=== PATIENT | male | born 1925 | race Caucasian/White ===

== ENCOUNTER 2017-06-27 13:40 | Observation (INO) | payer OTHER ==
--- NOTE | 2017-06-27 14:22 | RAD REPORT ---
EXAM DESCRIPTION: CT - CTHCSPWOC - 06/27/2017 2:05 pm CLINICAL HISTORY: Trauma, fall, head and neck injury. COMPARISON: None. TECHNIQUE: Axial 5 mm thick images of the head were obtained. Axial 2 mm thick images of the cervical spine were obtained with sagittal and coronal reconstruction images generated and reviewed. All CT scans are performed using dose optimization technique as appropriate and may include automated exposure control or mA/KV adjustment according to patient size. FINDINGS: CT HEAD WITHOUT CONTRAST: No acute hemorrhage, hydrocephalus or extra-axial collection is identified.Moderate generalized brain atrophy is present with moderate periventricular and deep white matter chronic microvascular ischemi c changes.No areas of brain edema or midline shift. Right vertebral artery is atherosclerotic. The paranasal sinuses and mastoids are clear.The calvarium is intact. Posterior scalp hematoma is not ed. CT CERVICAL SPINE WITHOUT CONTRAST: No fracture or subluxation.Mild lower cervical degenerative change.No prevertebral soft tissues swell ing is identified. IMPRESSION: No acute intracranial or cervical spine findings.
[2017-06-27 14:46] LABS: Absolute Lymphocytes (CBC) 1.6 K/uL (0.7-4.9); Absolute Monocytes 0.5 K/uL (0.1-1.3); Absolute Neutrophil 5.8 K/uL (1.8-8.0); Basophils % 0.5 % (0-1.3); Eosinophils % 2.8 % (0-4.4); Hematocrit 43.4 % (39.6-49.0); Lymphocytes % 19.2 % (15.3-44.8); MCH 31.2 pg (27.0-35.0); MCV 92.8 fL (80-100); MPV 8.6 fL (7.6-11.3); Monocytes % 6.2 % (3.3-12.3); RBC Red Blood Cell Count 4.68 M/uL (4.33-5.43)
[2017-06-27 14:53] LABS: Protime INR 1.11
[2017-06-27 14:56] LABS: Potassium 4.3 mEq/L (3.6-5.0)
[2017-06-27] MEDS ORDERED: TETANUS & DIPHTHERIA TOX,ADULT 0.5 ML VIAL ONE (14:57)
[2017-06-27 15:03] LABS: Albumin 3.7 g/dL (3.2-5.5); Bilirubin Direct 0.1 mg/dL (0-0.2); Bilirubin Total 0.7 mg/dL (0.3-1.2); Magnesium 1.8 mg/dL (1.8-2.5); Protein, Total 6.5 g/dL (6.0-8.3)
[2017-06-27 15:06] LABS: CKMB Creatine Kinase MB 2.1 ng/ml (0.3-4.0)
[2017-06-27] MEDS ORDERED: ASPIRIN 81 MG CHEWABLE TABLET ONE (15:14)
[2017-06-27] MEDS ORDERED: ONDANSETRON 4 MG/2 ML VIAL IV PRN (15:49)
[2017-06-27] MEDS ORDERED: NA CHLORIDE 0.9% 1,000 ML IV SCH (16:43)
--- NOTE | 2017-06-27 16:48 | ER ---
Nurse's Notes [facility] Name: Akash Byers Jr Age: 89 yrs Sex: Male : 1925 Arrival Date: 06/27/2017 Time: 13:42 Bed 27 Private MD: Diagnosis: Weakness-General;Other slipping, tripping and stumbling and falls;Contusion of unspecified part of head;Elevated Troponin Presentation: 06/27 13:42 Presenting complaint: EMS states: coming from [facility], with a witnessed fall from a hj standing position, with lac on the posterior part of the head, denies LOC and denies blood thinners; hit the posterior head from a table, BP- 180/70; been complaining of back pain that causes him to be unstable on his gait; denies pain on spine, back and neck;. Transition of care: patient was not received from another setting of care. Onset of symptoms was June 27, 2017. Initial Sepsis Screen: Does the patient meet any 2 criteria? No. Patient's initial sepsis screen is negative. Does the patient have a suspected source of infection? No. Patient's initial sepsis screen is negative. Care prior to arrival: None. 13:42 Method Of Arrival: EMS: [facility] 13:42 Acuity: VIN 4 13:51 Mechanism of Injury: Fall from standing position. Trauma event details: Injury occurred hj in the [facility], Injury occurred: in an institution. Injury occurred: June 27, 2017. Triage Assessment: 13:51 General: Appears in no apparent distress. uncomfortable, Behavior is calm, cooperative, hj appropriate for age. Pain: Complains of pain in scalp. Trauma Activation: Not Applicable Physician: ED Physician; Name: ; Notified At: ; Arrived At: Physician: General Surgeon; Name: ; Notified At: ; Arrived At: Physician: Radiology; Name: ; Notified At: ; Arrived At: Physician: Respiratory; Name: ; Notified At: ; Arrived At: Physician: Lab; Name: ; Notified At: ; Arrived At: Historical: - Allergies: 13:48 PENICILLINS; hj - Home Meds: 13:52 citalopram 20 mg tab 1 tab once daily [Active]; clopidogrel 75 mg oral tab 1 tab once hj daily [Active]; donepezil 10 mg oral tab 1 tab once daily [Active]; irbesartan-hydrochlorothiazide 300-12.5 mg oral tab 1 tab once daily [Active]; omeprazole 20 mg Oral cpDR 1 cap once daily [Active]; tamsulosin 0.4 mg oral cp24 1 cap once daily [Active]; Vesicare 5 mg oral tab 1 tab once daily [Active]; Acephen 650 mg Rectal supp 1 suppository every 4 hours [Active]; Cipro 500 mg Oral tab 1 tab every 12 hours [Active]; diazepam 10 mg Oral tab 1 tab 3 times per day [Active]; lactulose 10 gram/15 mL (15 mL) Oral soln 15 mL once daily [Active]; lorazepam 0.5 mg Oral tab 1 tab 3 times per day [Active]; morphine 15 mg Oral tab 1 tab every 4 hours [Active]; Zofran (as hydrochloride) 4 mg Oral tab 1 tabs 3 times per day [Active]; tramadol 50 mg Oral tab 1 tab every 4 hours [Active]; triamcinolone acetonide 0.025 % Topical crea 2 times per day [Active]; - PMHx: 13:52 Alzheimers; Hypertension; hj - PSHx: 13:48 Cholecystectomy; hj - Immunization history:: Adult Immunizations up to date. - Social history:: Smoking status: Patient/guardian denies using tobacco, Patient/guardian denies using alcohol. - Immunization history: Last tetanus immunization: unknown. Screenin:49 Abuse screen: Denies threats or abuse. Denies injuries from another. Nutritional hj screening: No deficits noted. Tuberculosis screening: No symptoms or risk factors identified. Fall Risk Fall in past 12 months (25 points). Primary Survey: 13:40 A: Airway: patent, No supplemental oxygen in use on arrival. Oral cavity: clear, gag hj reflex present, Trachea midline. Breathing/Chest: Respiratory pattern: regular, Respiratory effort: spontaneous, unlabored, Breath sounds: clear, Chest inspection: symmetrical rise and fall of the chest. Circulation: Cardiac rhythm: sinus rhythm Heart tones present. Pulses: palpable right radial artery and left radial artery. Skin color: pink, Skin temperature: warm, dry. Disability Alert. 13:50 Reassessment Airway Airway Patent Oxygen No O2 Oral cavity Clear +Gag reflex Trachea hj Midline Breathing/Chest Respiratory pattern Regular Respiratory effort Spontaneous Unlabored Breath sounds Clear Chest inspection Symmetrical Circulation Heart rhythm Sinus rhythm Heart tones Present Pulses Palpable Color [place] Temperature Warm Dry Disability Alert. 14:50 Reassessment Airway Airway Patent Oxygen No O2 Oral cavity Clear +Gag reflex Trachea hj Midline Breathing/Chest Respiratory pattern Regular Respiratory effort Spontaneous Unlabored Breath sounds Clear Chest inspection Symmetrical Circulation Heart rhythm Sinus rhythm Heart tones Present Pulses Palpable Color [place] Temperature Warm Dry Disability Alert. 15:50 Reassessment Airway Airway Patent Oxygen No O2 Oral cavity Clear +Gag reflex Trachea hj Midline Breathing/Chest Respiratory pattern Regular Respiratory effort Spontaneous Unlabored Breath sounds Clear Chest inspection Symmetrical Circulation Heart rhythm Sinus rhythm Heart tones Present Pulses Palpable Color [place] Temperature Warm Dry. 16:51 Reassessment Airway Airway Patent Oxygen No O2 Oral cavity Clear +Gag reflex Trachea hj Midline Breathing/Chest Respiratory pattern Regular Respiratory effort Spontaneous Unlabored Breath sounds Clear Chest inspection Symmetrical Circulation Heart rhythm Sinus rhythm Heart tones Present Pulses Palpable Color [place] Temperature Warm Dry Disability Alert. Secondary Survey: 13:48 HEENT: Head Other bruising;. Gastrointestinal: No deficits noted. : No signs and/or hj symptoms were reported regarding the genitourinary system. Musculoskeletal: No signs and/or symptoms reported regarding the musculoskeletal system. 13:48 Injury Description: Bruise sustained to scalp. hj Assessment: 13:52 General: Appears in no apparent distress. uncomfortable, Behavior is calm, cooperative, hj appropriate for age. Pain: Complains of pain in scalp. Neuro: Level of Consciousness is awake, alert, obeys commands, Oriented to person, place, time, situation, Appropriate for age. Cardiovascular: Capillary refill < 3 seconds Patient's skin is warm and dry. Respiratory: Airway is patent Respiratory effort is even, unlabored, Respiratory pattern is regular, symmetrical. GI: No signs and/or symptoms were reported involving the gastrointestinal system. : No signs and/or symptoms were reported regarding the genitourinary system. EENT: No signs and/or symptoms were reported regarding the EENT system. Derm: Wound noted scalp Reports. Musculoskeletal: No signs and/or symptoms reported regarding the musculoskeletal system. Injury Description: Laceration. 14:45 Reassessment: Patient and/or family updated on plan of care and expected duration. Pain hj level reassessed. Patient is alert, oriented x 3, equal unlabored respirations, skin warm/dry/pink. possible admit;. 15:45 Reassessment: Patient and/or family updated on plan of care and expected duration. Pain hj level reassessed. Patient is alert, oriented x 3, equal unlabored respirations, skin warm/dry/pink. 16:48 Reassessment: Patient and/or family updated on plan of care and expected duration. Pain hj level reassessed. Patient is alert, oriented x 3, equal unlabored respirations, skin warm/dry/pink. awaiting room placement;. Vital Signs: 13:48 BP 164 / 69; Pulse 66; Resp 18; Temp 98.1(TE); Pulse Ox 95% on R/A; Weight 90.72 kg; hj Height 6 ft. 0 in. (182.88 cm); 15:48 BP 173 / 82; Pulse 73; Resp 18; Pulse Ox 100% on R/A; hj 16:49 BP 188 / 88; Pulse 61; Resp 18; Pulse Ox 100% on R/A; hj 13:48 Body Mass Index 27.13 (90.72 kg, 182.88 cm) hj Shauna Coma Score: 13:48 Eye Response: spontaneous(4). Verbal Response: oriented(5). Motor Response: obeys hj commands(6). Total: 15. Trauma Score (Adult): 13:48 Eye Response: spontaneous(1); Verbal Response: oriented(1); Motor Response: obeys hj commands(2); Systolic BP: > 89 mm Hg(4); Respiratory Rate: 10 to 29 per min(4); Shauna Score: 15; Trauma Score: 12 ED Course: 13:42 Patient arrived in ED. hj 13:43 [facility]. cp 13:44 Tristin Salinas MD is Attending Physician. cp 13:47 Triage completed. hj 13:51 Arm band placed on right wrist. hj 13:51 Patient maintains SpO2 saturation greater than 95% on room air. hj 13:52 Patient has correct armband on for positive identification. Bed in low position. Call light in reach. Side rails up X 1. Adult w/ patient. 13:52 Thermoregulation: warm blanket given to patient. hj 13:53 Keron Jean, ERMA is Primary Nurse. hj 13:58 Initial lab(s) drawn, by ne, sent to lab. Urine collected: clean catch specimen. hj Inserted saline lock: 22 gauge in right antecubital area, using aseptic technique. Blood collected. 14:05 CT completed. Patient tolerated procedure well. Patient moved back from CT. bq 14:05 CT Head C Spine In Process Unspecified. EDMS 16:46 Marianela Hobson MD is Hospitalizing Provider. cp 17:48 No provider procedures requiring assistance completed. Patient admitted, IV remains in hj place. intact. 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 Exp: hj 10/02/2019. Lot #: [id number]. } Route: IM; Site: right deltoid; 15:02 Follow up: Response: No adverse reaction hj 15:13 Drug: Aspirin Chewable Tablet 324 mg Route: PO; hj 15:21 Follow up: Response: No adverse reaction hj Intake: 17:49 PO: 200ml; Total: 200ml. hj Output: 17:49 Urine: 350ml (Voided); Total: 350ml. hj Outcome: 16:45 awaiting room assignment;Patient's length of stay extended due to hj 16:47 Decision to Hospitalize by Provider. cp 17:48 Admitted to Tele accompanied by tech, family with patient, via stretcher, room 405, hj with chart, Report called to ERMA Schumacher 17:48 Condition: stable 17:48 Instructed on the need for admit, Demonstrated understanding of instructions. 17:49 Patient left the ED. Signatures: Dispatcher [employer] EDMS Anna Alexis Henry, RN RN Tristin Miranda PA PA cp Corrections: (The following items were deleted from the chart) 15:47 13:48 BP 164 / 69; Pulse 18bpm; Resp 66bpm; Pulse Ox 95% RA; Temp 98.1F Temporal; 90.72 hj kg; Height 6 ft. 0 in.; BMI: 27.1; hj
--- NOTE | 2017-06-27 16:48 | EDPHYS ---
Physician Documentation [facility] Name: Akash Byers Jr Age: 89 yrs Sex: Male : 1925 Arrival Date: 06/27/2017 Time: 13:42 Bed 27 Private MD: ED Physician Tristin Salinas HPI: 06/27 13:55 This 89 yrs old Male presents to ER via EMS with complaints of Fall Injury. cp 13:55 Details of fall: The patient fell from an upright position, while standing. Onset: The cp symptoms/episode began/occurred just prior to arrival. Associated injuries: The patient sustained injury to the head, contusion, hematoma. Daughter reports increasing weakness causing patient to fall today when getting up from table. Patient hit back of head w/o LOC. Historical: - Allergies: 13:48 PENICILLINS; hj - Home Meds: 13:52 citalopram 20 mg tab 1 tab once daily [Active]; clopidogrel 75 mg oral tab 1 tab once hj daily [Active]; donepezil 10 mg oral tab 1 tab once daily [Active]; irbesartan-hydrochlorothiazide 300-12.5 mg oral tab 1 tab once daily [Active]; omeprazole 20 mg Oral cpDR 1 cap once daily [Active]; tamsulosin 0.4 mg oral cp24 1 cap once daily [Active]; Vesicare 5 mg oral tab 1 tab once daily [Active]; Acephen 650 mg Rectal supp 1 suppository every 4 hours [Active]; Cipro 500 mg Oral tab 1 tab every 12 hours [Active]; diazepam 10 mg Oral tab 1 tab 3 times per day [Active]; lactulose 10 gram/15 mL (15 mL) Oral soln 15 mL once daily [Active]; lorazepam 0.5 mg Oral tab 1 tab 3 times per day [Active]; morphine 15 mg Oral tab 1 tab every 4 hours [Active]; Zofran (as hydrochloride) 4 mg Oral tab 1 tabs 3 times per day [Active]; tramadol 50 mg Oral tab 1 tab every 4 hours [Active]; triamcinolone acetonide 0.025 % Topical crea 2 times per day [Active]; - PMHx: 13:52 Alzheimers; Hypertension; hj - PSHx: 13:48 Cholecystectomy; hj - Immunization history:: Adult Immunizations up to date. - Social history:: Smoking status: Patient/guardian denies using tobacco, Patient/guardian denies using alcohol. - Immunization history: Last tetanus immunization: unknown. ROS: 14:00 Constitutional: Negative for body aches, chills, fever, poor PO intake. cp 14:00 Eyes: Negative for injury, pain, redness, and discharge. cp 14:00 Neck: Negative for pain with movement, pain at rest, stiffness. 14:00 Cardiovascular: Negative for chest pain, edema, palpitations. 14:00 Respiratory: Negative for cough, shortness of breath, wheezing. 14:00 Back: Negative for pain at rest, pain with movement, radiated pain. 14:00 MS/extremity: Negative for injury or acute deformity, decreased range of motion, deformity, paresthesias. 14:00 Skin: Negative for cellulitis, rash. 14:00 Neuro: Positive for general weakness, Negative for altered mental status, loss of consciousness, seizure activity, syncope, near syncope. 14:00 All other systems are negative. Exam: 14:08 Constitutional: The patient appears in no acute distress, alert, awake, cp non-diaphoretic, non-toxic, well developed, well nourished. 14:08 Head/face: Noted is contusion, that is superficial, of the right side of the back of cp head, hematoma, that is mild, of the right side of the back of head. 14:08 Eyes: Periorbital structures: appear normal, Pupils: equal, round, and reactive to light and accomodation, Extraocular movements: intact throughout, Conjunctiva: normal, no exudate, no injection, Sclera: no appreciated abnormality, Lids and lashes: appear normal, bilaterally. 14:08 ENT: External ear(s): are unremarkable, Ear canal(s): are normal, clear, TM's: bulging, is not appreciated, bilaterally, dullness, bilaterally, erythema, is not appreciated, bilaterally, Nose: is normal, Mouth: Lips: moist, Oral mucosa: pink and intact, moist, Posterior pharynx: is normal, airway is patent, no erythema, no exudate. 14:08 Neck: C-spine: vertebral tenderness, is not appreciated, crepitus, is not appreciated, ROM/movement: is normal, is supple, without pain, no range of motions limitations, no nuchal rigidity. 14:08 Chest/axilla: Inspection: normal, Palpation: is normal, no crepitus, no tenderness. 14:08 Cardiovascular: Rate: normal, Rhythm: irregular, Pulses: Pulses are 2+ in right radial artery and left radial artery. Edema: is not appreciated, JVD: is not appreciated. 14:08 Respiratory: the patient does not display signs of respiratory distress, Respirations: normal, no use of accessory muscles, no retractions, no splinting, no tachypnea, labored breathing, is not present, Breath sounds: are clear throughout, no decreased breath sounds, no stridor, no wheezing. 14:08 Abdomen/GI: Inspection: abdomen appears normal, Bowel sounds: active, all quadrants, Palpation: abdomen is soft and non-tender, in all quadrants, rebound tenderness, is not appreciated, voluntary guarding, is not appreciated, involuntary guarding, is not appreciated. 14:08 Back: ROM is normal. 14:08 Musculoskeletal/extremity: Exam is negative for decreased range of motion, deformity, injury. 14:08 Skin: cellulitis, is not appreciated, no rash present. 14:08 Neuro: Orientation: to person, place, situation, Mentation: lucid, able to follow commands, Cerebellar function: is grossly normal, Motor: moves all fours, strength is normal, Sensation: no obvious gross deficits. Vital Signs: 13:48 BP 164 / 69; Pulse 66; Resp 18; Temp 98.1(TE); Pulse Ox 95% on R/A; Weight 90.72 kg; Height 6 ft. 0 in. (182.88 cm); 15:48 BP 173 / 82; Pulse 73; Resp 18; Pulse Ox 100% on R/A; 16:49 BP 188 / 88; Pulse 61; Resp 18; Pulse Ox 100% on R/A; 13:48 Body Mass Index 27.13 (90.72 kg, 182.88 cm) Shauna Coma Score: 13:48 Eye Response: spontaneous(4). Verbal Response: oriented(5). Motor Response: obeys commands(6). Total: 15. Trauma Score (Adult): 13:48 Eye Response: spontaneous(1); Verbal Response: oriented(1); Motor Response: obeys commands(2); Systolic BP: > 89 mm Hg(4); Respiratory Rate: 10 to 29 per min(4); [place] Score: 15; Trauma Score: 12 MDM: 13:47 Patient medically screened. 16:15 Data reviewed: vital signs, nurses notes, lab test result(s), EKG, radiologic studies, cp CT scan. 16:15 Test interpretation: by ED physician or midlevel provider: ECG. 16:35 Physician consultation: Marianela Hobson MD was contacted at 16:35, regarding admission, cp to the telemetry unit. patient's condition, and will see patient in ED, shortly. 06/27 14:16 Order name: Basic Metabolic Panel; Complete Time: 15:11 06/27 15:11 Interpretation: Normal except: BUN 22; CRE 1.26; GFR 54. 06/27 14:16 Order name: CBC with Diff; Complete Time: 15:11 06/27 15:11 Interpretation: Normal except: PLT 134. 06/27 14:16 Order name: Ckmb; Complete Time: 15:11 06/27 14:16 Order name: CPK; Complete Time: 15:11 06/27 14:16 Order name: LFT's; Complete Time: 15:11 06/27 14:16 Order name: Magnesium; Complete Time: 15:11 06/27 14:16 Order name: PT-INR; Complete Time: 15:11 06/27 15:27 Interpretation: PT 13.1; Reviewed. 06/27 14:16 Order name: Ptt, Activated; Complete Time: 15:11 06/27 14:16 Order name: Troponin (emerg Dept Use Only); Complete Time: 15:11 06/27 15:12 Interpretation: Abnormal: TROPED 0.04. 06/27 15:47 Order name: Urine Dipstick--Ancillary (enter results) eb 06/27 16:44 Order name: CBC with Automated Diff EDMS 06/27 16:44 Order name: CBC with Automated Diff EDMS 06/27 16:44 Order name: CBC with Automated Diff EDMS 06/27 16:44 Order name: CBC with Automated Diff EDMS 06/27 13:44 Order name: CT Head C Spine; Complete Time: 14:23 06/27 14:23 Interpretation: Reviewed report. 06/27 14:16 Order name: EKG; Complete Time: 14:16 06/27 14:16 Order name: Cardiac monitoring; Complete Time: 14:17 06/27 14:16 Order name: EKG - Nurse/Tech; Complete Time: 14:38 06/27 14:16 Order name: IV Saline Lock; Complete Time: 14:38 06/27 14:16 Order name: Labs collected and sent; Complete Time: 14:38 06/27 14:16 Order name: O2 Per Protocol; Complete Time: 14:18 06/27 15:51 Order name: Heart Healthy [facility] 06/27 16:44 Order name: Physical Therapy Consult [facility] 06/27 16:44 Order name: Comprehensive Metabolic Panel [facility] 06/27 16:44 Order name: Comprehensive Metabolic Panel [facility] 06/27 16:44 Order name: Comprehensive Metabolic Panel [facility] 06/27 16:44 Order name: Comprehensive Metabolic Panel [facility] 06/27 16:44 Order name: Troponin I [facility] 06/27 14:16 Order name: O2 Sat Monitoring; Complete Time: 14:18 06/27 14:16 Order name: Urine Dipstick-Ancillary (obtain specimen); Complete Time: 15:49 06/27 14:50 Order name: Wound Care; Complete Time: 15:21 cp Administered Medications: 14:50 Drug: Tetanus-Diphtheria Toxoid Adult 0.5 ml {[employer]: [employer]. Exp: 10/02/2019. Lot #: [id number]. } Route: IM; Site: right deltoid; 15:02 Follow up: Response: No adverse reaction 15:13 Drug: Aspirin Chewable Tablet 324 mg Route: PO; 15:21 Follow up: Response: No adverse reaction Disposition: 18:30 Chart complete. cp Disposition: 06/27/17 16:47 Hospitalization ordered by Marianela Hobson for Observation. Preliminary diagnosis are Weakness - General, Other slipping, tripping and stumbling and falls, Contusion of unspecified part of head, Elevated Troponin. - Bed requested for Telemetry/MedSurg (observation). - Status is Observation. hj - Condition is Stable. - Problem is new. - Symptoms are unchanged. UTI on Admission? No Addendum: 06/29/2017 09:03 Co-signature as Attending Physician, Tristin Salinas MD I agree with the assessment and c husain plan of care. Signatures: Dispatcher [employer] Tristin Gray MD MD cha Joaquin, Henry, RN RN Tristin Bhat PA PA cp Botello, Elizabeth eb
--- NOTE | 2017-06-27 16:56 | P.HP ---
Certification for Inpatient Patient admitted to: Observation With expected LOS: <2 Midnights Patient will require the following post-hospital care: None Practitioner: I am a practitioner with admitting privileges, knowledge of patient current condition, hospital course, and medical plan of care. Services: Services provided to patient in accordance with Admission requirements found in Title 42 Section 412.3 of the Code of Federal Regulations Patient History Date of Service: 06/27/17 Primary Care Provider: Dr Gregg Reason for admission: Fall History of Present Illness: This is a 89-year-old male with significant past medical history of hypertension , CAD, Alzheimer's disease who presented to the ED after having a fall at lunch this morning. Patient's family at bedside states that patient usually lives [facility] and sees as his primary care provider. Patient was in his general state of health until 2 days ago where he started having some generalized weakness and which got progressively worse. Today at lunch time patient who was found to have unsteady gait and had a fall a ventrally. Does the family members brought the patient over to the ER to get a further checked out. Patient denies having any fever chills nausea vomiting chest pain or any shortness of breath at this time and states that he does not have any other symptoms other than just generalized weakness. In the ER patient had extensive workup done which was consistent with head CT which was within normal limits however there was superficial hematoma noted in the back of his head. Patient was also found to have acute kidney injury just a slight bump from his baseline. Patient was then referred to medicine team for an admission for observation for his fall. Allergies Penicillins Allergy (Mild, Verified 06/27/17 16:42) Rash Home Medications: Diphenhydramine HCl [Benadryl] 25 mg PO BEDTIME 04/15/11 Gluc Cote/Chondroitin Sulfate A [Glucosamine-Chondroitin Cap] 2 each PO DAILY 12/02 Ibuprofen [Advil] 400 mg PO BEDTIME PRN 04/15/11 Olmesartan/Hydrochlorothiazide [Benicar Hct 40-25 mg Tablet] 1 each PO DAILY 12/02 Tamsulosin HCl [Flomax] 0.4 mg PO DAILY 04/15/11 Clopidogrel Bisulfate [Plavix*] 75 mg PO DAILY #0 tablet 04/17/11 Iron Bis-Gly/FA/C/B12/Ca/Succ [Iron 21/7 Tablet] 1 tab PO DAILY 10/14/14 Omeprazole [Prilosec] 1 cap PO DAILY 10/14/14 Acetaminophen [Acephen] 650 mg RC Q4H 06/27/17 Citalopram [Celexa] 20 mg PO DAILY 06/27/17 Diazepam [Valium] 10 mg PO PRN PRN 06/27/17 Donepezil [Aricept] 10 mg PO BEDTIME 06/27/17 Lactulose [Enulose] 10 gm PO PRN PRN 06/27/17 Lorazepam [Ativan] 0.5 mg PO BID PRN 06/27/17 Morphine Sulfate [Morphine Sulfate ER] 15 mg PO PRN PRN 06/27/17 Ondansetron [Zofran] 4 mg PO Q6H PRN 06/27/17 Solifenacin [Vesicare] 5 mg PO DAILY 06/27/17 - Past Medical/Surgical History Diabetic: No -: AAA -: BPH -: cholecystectomy -: lobectomy - Family History Father -: Heart disease, Hypertension - Social History Alcohol use: No CD- Drugs: No Caffeine use: Yes Review of Systems General: As per HPI Physical Examination - Physical Exam General: Alert, In no apparent distress, Oriented x3 HEENT: Atraumatic Neck: Supple Respiratory: Clear to auscultation bilaterally, Normal air movement Cardiovascular: Regular rate/rhythm, Normal S1 S2 Gastrointestinal: Normal bowel sounds, Soft and benign, Non-distended, No tenderness Musculoskeletal: No tenderness Integumentary: No rashes Neurological: Normal speech, Normal tone, Abnormal strength Lymphatics: No axilla or inguinal lymphadenopathy - Studies Laboratory Data (last 24 hrs) 06/27/17 14:30: PT 13.1 H, INR 1.11, APTT 30.3 06/27/17 14:30: WBC 8.1, Hgb 14.6, Hct 43.4, Plt Count 134 L 06/27/17 14:30: Sodium 136, Potassium 4.3, BUN 22 H, Creatinine 1.26 H, Glucose 117, Magnesium 1.8, Total Bilirubin 0.7, AST 29, ALT 16, Alkaline Phosphatase 57 Assessment and Plan - Problems (Diagnosis) (1) Fall Current Visit: Yes Status: Acute Plan: Mechanical Fall -Fall precautions -PT.OT consulted -Head Ct Negative -Superfical Hematoma. Cleaned and dried in the ED. Qualifiers: Encounter type: initial encounter Qualified Code(s): W19.XXXA - Unspecified fall, initial encounter (2) Weakness Onset Date: 10/16/14 Current Visit: No Status: Acute Plan: Generalized weakness. Most Likely from Dehydration and Afib -IV fluids -PT/OT on board -UA and blood culture pending (3) A-fib Current Visit: Yes Status: Acute Plan: Unspecified Afib with HR of 60-65. -Currently not on BB -On ASA and plavix for CAD -Will get ECHO and cardiology consult -High Risk for fall to start any other anticoagulation at this time Qualifiers: Atrial fibrillation type: unspecified Qualified Code(s): I48.91 - Unspecified atrial fibrillation (4) Alzheimer disease Current Visit: Yes Status: Chronic Plan: Will restart home medication. Qualifiers: Alzheimer's disease onset: early-onset Dementia behavioral disturbance: without behavioral disturbance Qualified Code(s): G30.0 - Alzheimer's disease with early onset; F02.80 - Dementia in other diseases classified elsewhere without behavioral disturbance; F02.80 - Dementia in other diseases classified elsewhere without behavioral disturbance; F02.80 - Dementia in other diseases classified elsewhere without behavioral disturbance (5) HTN (hypertension) Current Visit: Yes Status: Chronic Qualifiers: Hypertension type: essential hypertension Qualified Code(s): I10 - Essential (primary) hypertension (6) CAD (coronary artery disease) Current Visit: Yes Status: Chronic Qualifiers: Coronary Disease-Associated Artery/Lesion type: [place] artery [place] vs. transplanted heart: [place] heart Associated angina: without angina Qualified Code(s): I25.10 - Atherosclerotic heart disease of [place] coronary artery without angina pectoris Discharge Plan: Home Plan to discharge in: 48 Hours - Advance Directives Does patient have a Living Will: Yes Does patient have a Durable POA for Healthcare: Yes - Code Status/Comfort Care Code Status Assessed: Yes Critical Care: No
[2017-06-27 16:58] LABS: Urine Blood 1+ (NEG); Urine Glucose NEGATIVE (NEG); Urine Protein 3+ (NEG)
[2017-06-27] MEDS ORDERED: NA CHLORIDE 0.9% 1,000 ML ONE (17:46)
[2017-06-27 18:59] VITALS: BMI 26.0
[2017-06-27] MEDS: DONEPEZIL HCL 5 MG TAB PO SCH (20:14)
[2017-06-27] MEDS: METOPROLOL TAR 50 MG TAB PO SCH (22:00)
[2017-06-28 05:59] LABS: Absolute Lymphocytes (CBC) 1.8 K/uL (0.7-4.9); Absolute Monocytes 0.6 K/uL (0.1-1.3); Absolute Neutrophil 6.6 K/uL (1.8-8.0); Basophils % 0.4 % (0-1.3); Eosinophils % 5.5 % (0-4.4); Hematocrit 43.3 % (39.6-49.0); MCH 31.2 pg (27.0-35.0); MCV 92.1 fL (80-100); MPV 8.7 fL (7.6-11.3); Monocytes % 6.3 % (3.3-12.3)
[2017-06-28] MEDS: PANTOPRAZOLE 40MG TABLET PO SCH (06:09)
[2017-06-28 06:32] LABS: Albumin 3.4 g/dL (3.2-5.5); Bilirubin Total 0.9 mg/dL (0.3-1.2); Potassium 4.1 mEq/L (3.6-5.0); Protein, Total 5.8 g/dL (6.0-8.3)
[2017-06-28 06:55] LABS: Magnesium 1.7 mg/dL (1.8-2.5); Phosphorus 3.3 mg/dL (2.5-4.3)
[2017-06-28] MEDS ORDERED: MAGNESIUM SULFATE 1 gm IVPB 1 GM/100 ML BAG IV ONE (08:58)
[2017-06-28] MEDS ORDERED: HOME MED 1 EA UNK (Omeprazole [Prilosec] 1 CAP) PO SCH (09:00)
[2017-06-28] MEDS ORDERED: HYDROCHLOROTHIAZIDE PO SCH (09:00)
[2017-06-28] MEDS ORDERED: [UNRECOGNIZED DRUG - OTHER] PO SCH (09:00)
[2017-06-28] MEDS: METOPROLOL TAR 50 MG TAB PO SCH (09:00)
[2017-06-28] MEDS ORDERED: hydroCHLOROthiazide 25 MG TAB PO SCH (09:00)
[2017-06-28] MEDS ORDERED: OLMESARTAN PO SCH (09:00)
[2017-06-28] MEDS: TAMSULOSIN 0.4 MG SR CAP PO SCH (10:02)
[2017-06-28] MEDS: FE SULF/FA/VIT B COMP & C TAB PO SCH (10:02)
[2017-06-28] MEDS: CITALOPRAM 10 MG TABLET PO SCH (10:02)
[2017-06-28] MEDS: VALSARTAN 160 MG TAB PO SCH (10:02)
[2017-06-28] MEDS: SOLIFENACIN SUCCIN 5 MG TAB PO SCH (10:03)
[2017-06-28] MEDS: CLOPIDOGREL 75 MG TABLET PO SCH (10:03)
[2017-06-28] MEDS: GLUCOSAM/CHONDROI 500mg-400mg PO SCH (10:06)
--- NOTE | 2017-06-28 10:35 | P.PN ---
Subjective Date of Service: 06/28/17 Primary Care Provider: Dr Gregg Chief Complaint: Fall Pt seen and examined at bedside. Chart reviewed. Case D/w cardiology. Currently pt has no complains to offer. He was confused in AM where he called his daughter to take his home. However his was not in the room. She is at [facility]. During rounds pt was AAOx 3. He does appear a little agitated from yesterday. Review of Systems General: As per HPI Physical Examination - Vital Signs Temperature: 97.1 F Blood Pressure: 181/72 Pulse: 51 Respirations: 18 Pulse Ox (%): 93 - Physical Exam General: Alert, In no apparent distress, Oriented x3 HEENT: Atraumatic Neck: Supple Respiratory: Normal air movement, Rhonchi/gurgles Cardiovascular: Normal S1 S2, Irregular heart rate/rhythm Gastrointestinal: Normal bowel sounds, Soft and benign, Non-distended, No tenderness Musculoskeletal: No tenderness Integumentary: No rashes Neurological: Normal speech, Normal tone, Normal affect Lymphatics: No axilla or inguinal lymphadenopathy - Studies Laboratory Data (last 24 hrs) 06/27/17 14:30: PT 13.1 H, INR 1.11, APTT 30.3 06/27/17 14:30: WBC 8.1, Hgb 14.6, Hct 43.4, Plt Count 134 L 06/27/17 14:30: Sodium 136, Potassium 4.3, BUN 22 H, Creatinine 1.26 H, Glucose 117, Magnesium 1.8, Total Bilirubin 0.7, AST 29, ALT 16, Alkaline Phosphatase 57 Medications List Reviewed: Yes Assessment & Plan - Problems (Diagnosis) (1) Fall Current Visit: Yes Status: Acute Plan: Mechanical Fall -Fall precautions -PT.OT consulted -Head Ct Negative in ED -Superfical Hematoma. Cleaned and dried in the ED. Qualifiers: Encounter type: initial encounter Qualified Code(s): W19.XXXA - Unspecified fall, initial encounter (2) Weakness Onset Date: 10/16/14 Current Visit: No Status: Acute Plan: Generalized weakness. Most Likely from Dehydration and Afib -IV fluids -PT/OT on board -UA and blood culture pending (3) A-fib Current Visit: Yes Status: Acute Plan: long history of Afib with HR of 60-65. -Currently on Metoprolol. Was on betapace in the past but was not able to tolerate it. -On ASA and plavix for CAD -High Risk for fall to start any other anticoagulation at this time -Case D/W cardiology. Reccs Apprecaited -No echo needed. Recent one done in the office which was WNL -No anticoagulation due to h/o falls. Continue with ASA and plavix -Continue with BB and DC HCTZ. -F/U in the clinic on thursday 8:30 AM Qualifiers: Atrial fibrillation type: unspecified Qualified Code(s): I48.91 - Unspecified atrial fibrillation (4) Alzheimer disease Current Visit: Yes Status: Chronic Plan: Will restart home medication. Qualifiers: Alzheimer's disease onset: early-onset Dementia behavioral disturbance: without behavioral disturbance Qualified Code(s): G30.0 - Alzheimer's disease with early onset; F02.80 - Dementia in other diseases classified elsewhere without behavioral disturbance; F02.80 - Dementia in other diseases classified elsewhere without behavioral disturbance; F02.80 - Dementia in other diseases classified elsewhere without behavioral disturbance (5) HTN (hypertension) Current Visit: Yes Status: Chronic Qualifiers: Hypertension type: essential hypertension Qualified Code(s): I10 - Essential (primary) hypertension (6) CAD (coronary artery disease) Current Visit: Yes Status: Chronic Qualifiers: Coronary Disease-Associated Artery/Lesion type: [place] artery [place] vs. transplanted heart: [place] heart Associated angina: without angina Qualified Code(s): I25.10 - Atherosclerotic heart disease of [place] coronary artery without angina pectoris Discharge Plan: Other Plan to discharge in: 24 Hours - Code Status/Comfort Care Code Status Assessed: Yes Critical Care: No
--- NOTE | 2017-06-28 14:36 | RAD REPORT ---
EXAM DESCRIPTION: CT - Head Brain Wo Cont - 06/28/2017 1:06 pm CLINICAL HISTORY: New or persistent alteration of awareness. Malfunction of the aviation technician system precluded an earlier written report. COMPARISON: CT imaging June 27 TECHNIQUE: Axial 5 mm thick images of the head were obtained without IV contrast. All CT scans are performed using dose optimization technique as appropriate and may include automated exposure control or mA/KV adjustment according to patient size. FINDINGS: No intracranial hemorrhage has developed since the prior imaging. Again noted is the advan marjroie atrophy and chronic ischemic change. Severity of disease could easily mask nonhemorrhagic infarct ion. Brainstem chronic ischemic changes also noted. No cortical edema or sulcal effacement. There is no midline shift or mass effect. No abnormal extra-axial fluid collections. Ventricles are in proport ion to volume loss. Arterial calcifications are present. The intracranial findings are not clearly di fferent from the comparison. Mastoid air cells and visualized portions of the paranasal sinuses are clear. No skull fracture changes. The patient does have prominent soft tissues in the occipital scalp that i s probably a small posttraumatic scalp hematoma. IMPRESSION: Prominent atrophy and chronic ischemic changes are present similar to the prior day stud y. No hemorrhage, edema or other acute intracranial finding has developed. Small posterior occipital scalp hematoma. Underlying bone is intact.
--- NOTE | 2017-06-28 16:10 | EKG ---
Test Date: 2017-06-27 Test Time: 14:45:34 Bridge Manager: WILLAM MEASUREMENT RESULTS: Intervals: Rate: 65 DE: QRSD: 174 QT: 484 QTc: 503 [place]: P: DE: QRS: -61 T: 10 INTERPRETIVE STATEMENTS: Atrial fibrillation Right bundle branch block Left anterior fascicular block Bifascicular block Cannot rule out Septal infarct, age undetermined Abnormal ECG Compared to ECG 10/15/2014 06:00:07 Sinus bradycardia no longer present First degree AV block no longer present Bifascicular block still present Myocardial infarct finding still present Electronically Signed On 06-28-17 16:09:57 CDT by Mustapha Dominguez
[2017-06-28] MEDS: AMLODIPINE 5 MG TAB PO SCH (17:51)
[2017-06-28] MEDS: TRAMADOL HCL 50 MG TAB PO PRN (17:59)
[2017-06-28] MEDS: DONEPEZIL HCL 5 MG TAB PO SCH (21:14)
[2017-06-29 05:01] LABS: Urine Appearance CLEAR; Urine Bilirubin NEGATIVE (NEG); Urine Blood 1+ (NEG); Urine Color YELLOW; Urine Glucose NEGATIVE (NEG); Urine Protein 3+ (NEG); Urine Urobilinogen 0.2 mg/dL (0.2-1.0)
[2017-06-29 05:02] LABS: Urine Microscopic Reflex ORDER UMIC
[2017-06-29 05:51] LABS: Urine Culture Reflex Order NOT NEEDED
[2017-06-29 05:52] LABS: Urine Bacteria <20 /HPF (NONE SEEN)
[2017-06-29] MEDS: PANTOPRAZOLE 40MG TABLET PO SCH (06:13)
[2017-06-29 06:24] LABS: Albumin 3.1 g/dL (3.2-5.5); Bilirubin Total 1.2 mg/dL (0.3-1.2); Potassium 3.5 mEq/L (3.6-5.0); Protein, Total 5.6 g/dL (6.0-8.3)
[2017-06-29 06:53] LABS: Absolute Monocytes 0.8 K/uL (0.1-1.3); Absolute Neutrophil 6.7 K/uL (1.8-8.0); Basophils % 0.2 % (0-1.3); Eosinophils % 1.8 % (0-4.4); Hematocrit 41.7 % (39.6-49.0); Lymphocytes % 20.3 % (15.3-44.8); MCH 31.6 pg (27.0-35.0); MCV 91.4 fL (80-100); Monocytes % 7.9 % (3.3-12.3); RBC Red Blood Cell Count 4.56 M/uL (4.33-5.43)
[2017-06-29 07:29] LABS: Magnesium 1.7 mg/dL (1.8-2.5)
[2017-06-29] MEDS ORDERED: MAGNESIUM SULFATE 1 gm IVPB 1 GM/100 ML BAG IV ONE (09:00)
[2017-06-29] MEDS ORDERED: POTASSIUM 25 MEQ EFFERV TAB PO ONE (09:00)
[2017-06-29] MEDS: CITALOPRAM 10 MG TABLET PO SCH (09:05)
[2017-06-29] MEDS: FE SULF/FA/VIT B COMP & C TAB PO SCH (09:05)
[2017-06-29] MEDS: SOLIFENACIN SUCCIN 5 MG TAB PO SCH (09:05)
[2017-06-29] MEDS: VALSARTAN 160 MG TAB PO SCH (09:06)
[2017-06-29] MEDS: CLOPIDOGREL 75 MG TABLET PO SCH (09:07)
[2017-06-29] MEDS: AMLODIPINE 5 MG TAB PO SCH (09:07)
[2017-06-29] MEDS: TAMSULOSIN 0.4 MG SR CAP PO SCH (09:07)
[2017-06-29] MEDS: GLUCOSAM/CHONDROI 500mg-400mg PO SCH (10:19)
--- NOTE | 2017-06-29 18:33 | RAD REPORT ---
EXAM DESCRIPTION: MRI - Brain Wo Cont - 06/29/2017 6:15 pm CLINICAL HISTORY: Confusion/alteration of consciousness COMPARISON: June 28, [address] TECHNIQUE: Axial, sagittal, and coronal magnetic images of the brain were obtained. Contrast was not requested FINDINGS: Moderate to marked signal is present within periventricular, deep and subcortical white ma tter bilaterally. The brainstem is also involved. Diffusion-weighted/ADC mapping does not reveal evidence of acute infarction. The ventricles are normal caliber. An extra-axial fluid collection is not present Fluid within the sinuses/mastoids is not seen IMPRESSION: [id number] signal within periventricular, deep and subcortical white matter prob ably represent ischemic changes secondary to small vessel disease No acute intracranial abnormality is noted
[2017-06-29] MEDS ORDERED: cloNIDine HCl 0.1 MG TAB PO PRN (21:09)
--- NOTE | 2017-06-29 21:15 | P.PN ---
Subjective Date of Service: 06/29/17 Primary Care Provider: Dr Gregg Chief Complaint: Fall Subjective: No new changes MARIA ISABEL KRAMER HAD FALLEN AND HIT HIS HEAD ON THE FLOOR AT [facility]. HE HAS BEEN HERE FOR TWO DAYS. HOSPITALIST DOCTORS TOOK CARE OF HIM OVER THE WEEKEND. HE IS STILL NOT ABLE TO GET UP OFF THE BED WITH ASSISTANCE. HE IS NOT STABLE TO GO BACK TO [facility]. Review of Systems 10-point ROS is otherwise unremarkable General: Weakness Neurological: Weakness, Confusion (AT NIGHT HE HAD AGITATION AND ALL DAY YESTERDAY- HE FOUGHT WITH [employer]ETAKERS.) Physical Examination - Vital Signs Temperature: 97.4 F Blood Pressure: 184/81 Pulse: 59 Respirations: 16 Pulse Ox (%): 92 - Physical Exam General: Alert, Oriented x2 (ABLE TO RECOGNIZE ME.), Mild distress, Confused HEENT: Atraumatic, PERRLA, EOMI Neck: Supple, JVD not distended Respiratory: Clear to auscultation bilaterally, Normal air movement Cardiovascular: Regular rate/rhythm, Normal S1 S2 Gastrointestinal: Normal bowel sounds, No tenderness Musculoskeletal: No tenderness Integumentary: No rashes Neurological: Normal speech, Abnormal strength (MILD GEN WEAKNESS. ABLE TO MOVE ALL FOUR LIMBS AGAINST PRESSURE.) Lymphatics: No axilla or inguinal lymphadenopathy - Studies Medications List Reviewed: Yes Assessment And Plan - Current Problems (Diagnosis) (1) Fall Onset Date: 06/29/17 Current Visit: Yes Status: Acute Plan: NOT ABLE TO RECOUP YET. ADVISE [facility] TALKED TO DAUGHTER. Qualifiers: Encounter type: subsequent encounter Qualified Code(s): W19.XXXD - Unspecified fall, subsequent encounter (2) Weakness Onset Date: 06/29/17 Current Visit: Yes Status: Chronic Plan: WORSE NOW CHECK SED RATE, B12, TSH. ADVISE PT BUT HE IS NOT ABLE TO DO ANY. (3) Vascular dementia Current Visit: Yes Status: Chronic Plan: WORSE OVER TIME HOSPICE IS STILL RECOMMENDED BUT HE WILL NEED NH.
[2017-06-29] MEDS: DONEPEZIL HCL 5 MG TAB PO SCH (21:16)
[2017-06-30] MEDS: PANTOPRAZOLE 40MG TABLET PO SCH (05:56)
[2017-06-30 06:20] LABS: Absolute Lymphocytes (CBC) 1.4 K/uL (0.7-4.9); Absolute Monocytes 0.7 K/uL (0.1-1.3); Absolute Neutrophil 6.8 K/uL (1.8-8.0); Basophils % 0.2 % (0-1.3); Eosinophils % 2.4 % (0-4.4); Lymphocytes % 15.7 % (15.3-44.8); MCH 31.4 pg (27.0-35.0); MCV 91.1 fL (80-100); MPV 9.1 fL (7.6-11.3); Monocytes % 7.3 % (3.3-12.3); RBC Red Blood Cell Count 4.83 M/uL (4.33-5.43)
[2017-06-30 06:24] LABS: Albumin 3.2 g/dL (3.2-5.5); Bilirubin Total 1.3 mg/dL (0.3-1.2); Magnesium 1.7 mg/dL (1.8-2.5); Potassium 3.8 mEq/L (3.6-5.0); Protein, Total 5.7 g/dL (6.0-8.3)
[2017-06-30] MEDS ORDERED: MAGNESIUM SULFATE 1 gm IVPB 1 GM/100 ML BAG IV ONE (06:47)
[2017-06-30] MEDS ORDERED: POTASSIUM CL SA 10 MEQ TAB PO ONE (06:49)
[2017-06-30] MEDS: VALSARTAN 160 MG TAB PO SCH (08:36)
[2017-06-30] MEDS: AMLODIPINE 5 MG TAB PO SCH (08:37)
[2017-06-30] MEDS: TAMSULOSIN 0.4 MG SR CAP PO SCH (08:37)
[2017-06-30] MEDS: FE SULF/FA/VIT B COMP & C TAB PO SCH (08:37)
[2017-06-30] MEDS: GLUCOSAM/CHONDROI 500mg-400mg PO SCH (08:38)
[2017-06-30] MEDS: CLOPIDOGREL 75 MG TABLET PO SCH (08:38)
[2017-06-30] MEDS: SOLIFENACIN SUCCIN 5 MG TAB PO SCH (08:38)
[2017-06-30] MEDS: CITALOPRAM 10 MG TABLET PO SCH (08:38)
--- NOTE | 2017-06-30 12:06 | P.PN ---
Subjective Date of Service: 06/30/17 Primary Care Provider: Dr Gregg Chief Complaint: Fall Subjective: No new changes (STILL WEAK, NOT ABLETO DO ANY THERAPY WITH PT.) MARIA ISABEL KRAMER HAD FALLEN AND HIT HIS HEAD ON THE FLOOR AT [facility]. HE HAS BEEN HERE FOR TWO DAYS. HOSPITALIST DOCTORS TOOK CARE OF HIM OVER THE WEEKEND. HE IS STILL NOT ABLE TO GET UP OFF THE BED WITH ASSISTANCE. HE IS NOT STABLE TO GO BACK TO [facility]. Review of Systems General: Weakness, Malaise Neurological: Incoordination, Confusion (AT TIMES.) Physical Examination - Vital Signs Temperature: 97.8 F Blood Pressure: 163/78 Pulse: 86 Respirations: 16 Pulse Ox (%): 95 - Physical Exam General: Alert, Mild distress HEENT: Atraumatic, PERRLA, EOMI Neck: Supple, JVD not distended Respiratory: Clear to auscultation bilaterally, Normal air movement Cardiovascular: Regular rate/rhythm, Normal S1 S2 Gastrointestinal: Normal bowel sounds, No tenderness Musculoskeletal: No tenderness Integumentary: No rashes Neurological: Normal speech, Normal strength at 5/5 x4 extr, Abnormal gait (NOT ABLE TO SIT AND STAND TO WALK, NO PAIN ANYWHERE.) Lymphatics: No axilla or inguinal lymphadenopathy - Studies Medications List Reviewed: Yes Assessment And Plan - Current Problems (Diagnosis) (1) Fall Onset Date: 06/29/17 Current Visit: Yes Status: Acute Plan: NOT ABLE TO RECOUP YET. [facility] TALKED TO DAUGHTER. DO PELVIC AND HIP XRAYS. UNCLEAR WHY IS NOT ABLE TO DO PT. Qualifiers: Encounter type: subsequent encounter Qualified Code(s): W19.XXXD - Unspecified fall, subsequent encounter (2) Weakness Onset Date: 06/29/17 Current Visit: Yes Status: Chronic Plan: WORSE NOW CHECK SED RATE, B12, TSH. ADVISE PT BUT HE IS NOT ABLE TO DO ANY. (3) Vascular dementia Current Visit: Yes Status: Chronic Plan: WORSE OVER TIME HOSPICE IS STILL RECOMMENDED BUT HE WILL NEED NH.
--- NOTE | 2017-06-30 13:40 | RAD REPORT ---
EXAM DESCRIPTION: RAD - Hip Bilateral With Pelvis - 06/30/2017 1:33 pm CLINICAL HISTORY: Fall, hip pain COMPARISON: None. FINDINGS: Left total hip arthroplasty is noted. No hardware loosening seen. No acute fractures demon strated. Aortoiliac endovascular stenting is present. IMPRESSION: No acute fracture is seen.
--- NOTE | 2017-06-30 14:28 | RAD REPORT ---
EXAM DESCRIPTION: Lumbar Spine - Single View CLINICAL HISTORY: Fall, radiculopathy. COMPARISON: None. FINDINGS: Only a single lateral projection is submitted. Advanced multilevel degenerative changes ar e noted. No definitive evidence of an acute injury. No malalignment is seen. Aortic stenting is in pl gabrielle.
[2017-06-30] MEDS: DONEPEZIL HCL 5 MG TAB PO SCH (20:13)
[2017-07-01] MEDS: PANTOPRAZOLE 40MG TABLET PO SCH (05:30)
[2017-07-01] MEDS: LEVOTHYROXINE SOD 0.025 MG TAB PO SCH (05:30)
[2017-07-01 05:41] LABS: Magnesium 1.8 mg/dL (1.8-2.5); Potassium 3.9 mEq/L (3.6-5.0)
[2017-07-01] MEDS: FE SULF/FA/VIT B COMP & C TAB PO SCH (08:00)
[2017-07-01] MEDS ORDERED: POTASSIUM CL SA 10 MEQ TAB PO ONE (09:00)
[2017-07-01] MEDS ORDERED: MAGNESIUM SULFATE 1 gm IVPB 1 GM/100 ML BAG IV ONE (09:00)
[2017-07-01] MEDS: CLOPIDOGREL 75 MG TABLET PO SCH (09:49)
[2017-07-01] MEDS: CYANOCOBALAMIN 1000MCG/ML INJ SQ SCH (09:49)
[2017-07-01] MEDS: VALSARTAN 160 MG TAB PO SCH (09:49)
[2017-07-01] MEDS: TAMSULOSIN 0.4 MG SR CAP PO SCH (09:49)
[2017-07-01] MEDS: SOLIFENACIN SUCCIN 5 MG TAB PO SCH (09:50)
[2017-07-01] MEDS: CITALOPRAM 10 MG TABLET PO SCH (09:50)
[2017-07-01] MEDS: AMLODIPINE 5 MG TAB PO SCH (09:50)
[2017-07-01] MEDS: GLUCOSAM/CHONDROI 500mg-400mg PO SCH (09:51)
[2017-07-01] MEDS: DONEPEZIL HCL 5 MG TAB PO SCH (21:12)
[2017-07-02 04:38] VITALS: O2SAT 94
[2017-07-02 05:36] LABS: Magnesium 1.7 mg/dL (1.8-2.5); Potassium 3.7 mEq/L (3.6-5.0)
[2017-07-02] MEDS: LEVOTHYROXINE SOD 0.025 MG TAB PO SCH (06:20)
[2017-07-02] MEDS: PANTOPRAZOLE 40MG TABLET PO SCH (06:20)
[2017-07-02] MEDS ORDERED: POTASSIUM 25 MEQ EFFERV TAB PO ONE (09:00)
[2017-07-02] MEDS ORDERED: MAGNESIUM SULFATE 1 gm IVPB 1 GM/100 ML BAG IV ONE (09:00)
[2017-07-02] MEDS: GLUCOSAM/CHONDROI 500mg-400mg PO SCH (09:53)
[2017-07-02] MEDS: TRAMADOL HCL 50 MG TAB PO PRN (09:54)
[2017-07-02] MEDS: CYANOCOBALAMIN 1000MCG/ML INJ SQ SCH (09:54)
[2017-07-02] MEDS: FE SULF/FA/VIT B COMP & C TAB PO SCH (09:54)
[2017-07-02] MEDS: SOLIFENACIN SUCCIN 5 MG TAB PO SCH (09:55)
[2017-07-02] MEDS: CITALOPRAM 10 MG TABLET PO SCH (09:55)
[2017-07-02] MEDS: TAMSULOSIN 0.4 MG SR CAP PO SCH (09:56)
[2017-07-02] MEDS: AMLODIPINE 5 MG TAB PO SCH (09:56)
[2017-07-02] MEDS: VALSARTAN 160 MG TAB PO SCH (09:56)
[2017-07-02] MEDS: CLOPIDOGREL 75 MG TABLET PO SCH (09:56)
[2017-07-02 12:50] VITALS: BP 130/68; TEMP 97.6
== END 2017-07-02 12:23 | disposition home health service (06) ==
LOC: ER 13:40 → ERHOLD 16:50 → 4TH 17:40
PROVIDERS: ADMIT Family Medicine; ATTEND Family Medicine
DX: S00.03XA Contusion of scalp, initial encounter (principal); R53.1 Weakness; I25.10 Atherosclerotic heart disease of native coronary artery without angina pectoris; I10 Essential (primary) hypertension; G30.9 Alzheimer's disease, unspecified; F02.80 Dementia in other diseases classified elsewhere, unspecified severity, without behavioral disturbance, psychotic disturbance, mood disturbance, and anxiety; W01.0XXA Fall on same level from slipping, tripping and stumbling without subsequent striking against object, initial encounter; Y92.199 Unspecified place in other specified residential institution as the place of occurrence of the external cause; N17.9 Acute kidney failure, unspecified; I48.91 Unspecified atrial fibrillation; Z88.0 Allergy status to penicillin; Z23 Encounter for immunization
CPT/HCPCS: 36415; 70450; 70551; 72020; 72125; 73521; 80048; 80053; 80076; 81003; 81015; 82550; 82553; 82607; 83735; 84100; 84443; 84484; 85025; 85610; 85652; 85730; 87040; 87086; 87088; 90714; 93005; 97163; 99285; G0378; J3420; J3475; J7030

== ENCOUNTER 2017-08-31 09:55 | Emergency (ER) | payer OTHER ==
--- NOTE | 2017-08-31 11:36 | RAD REPORT ---
EXAM DESCRIPTION: CT - Thorax Wo Con - 08/31/2017 11:05 am CLINICAL HISTORY: Upper right chest pain, right shoulder pain, possible rib fracture COMPARISON: CT chest April 2009 TECHNIQUE: Axial 5 mm thick images of the chest were obtained without IV contrast. All CT scans are performed using dose optimization technique as appropriate and may include automated exposure control or mA/KV adjustment according to patient size. FINDINGS: Patient has significant interstitial fibrotic change in each lung base. Pattern is mildly progressive. No pneumothorax, pulmonary contusion, acute infiltrate or mass. Minimal pleural thickeni ng changes are present. A few small calcified granulomas noted. No abnormal mediastinal or hilar masses or lymphadenopathy seen. Aorta and pulmonary artery assessmen t are limited in the absence of IV contrast. Descending thoracic aorta calcifications are present. Di ssection of the proximal portion of the descending thoracic aorta is unchanged from 2009. No pericard ial thickening or effusion. No acute upper or mid -right chest rib fracture. No pathologic rib process identifiable. Inferior asp ect of the ribcage is not fully imaged. Apparently the patient is asymptomatic in the lower ribcage. Cortical irregularity is present at the anterior left fifth and sixth ribs near the costochondral yifan ction. No periosteal reaction or pathologic process. Acute to subacute rib fractures are suspected bu t would need correlation with any pain symptoms. No chest wall mass or abnormal axillary lymphadenopathy. Right shoulder joint is not imaged on this s tudy. IMPRESSION: No fracture or acute finding of the upper and mid right-sided rib cage. Fibrotic lung change progressive from 2009. No mass, infiltrate or pulmonary contusion. Suspected nondisplaced anterior left fifth and sixth rib fractures needing correlation with any local izing symptoms. Additional nonacute findings detailed in the body of the report.
--- NOTE | 2017-08-31 12:23 | RAD REPORT ---
EXAM DESCRIPTION: RAD - Humerus Right - 08/31/2017 11:21 am CLINICAL HISTORY: Right arm pain status post fall FINDINGS: No fracture is seen. The bones are osteoporotic
--- NOTE | 2017-08-31 12:30 | EDPHYS ---
Physician Documentation [facility] Name: Akash Byers Jr Age: 89 yrs Sex: Male : 1925 Arrival Date: 08/31/2017 Time: 09:58 Bed 19 Private MD: Evan Gregg V ED Physician Gabo Matute HPI: 08/31 12:27 This 89 yrs old Male presents to ER via Ambulatory with complaints of Fall gs Injury. 12:27 Details of fall: The patient fell from an upright position. Onset: The symptoms/episode gs began/occurred at an unknown time. Severity of symptoms: At their worst the symptoms were moderate, in the emergency department the symptoms are unchanged. Unable to obtain HPI due to baseline dementia. The patient has experienced similar episodes in the past, a few times. Historical: - Allergies: 10:09 PENICILLINS; hj - PMHx: 10:09 Alzheimers; Hypertension; hj - PSHx: 10:09 Cholecystectomy; hj - Immunization history:: Adult Immunizations up to date. - Social history:: Smoking status: Patient/guardian denies using tobacco, Patient/guardian denies using alcohol. - Ebola Screening: : Patient negative for fever greater than or equal to 101.5 degrees Fahrenheit, and additional compatible Ebola Virus Disease symptoms Patient denies exposure to infectious person Patient denies travel to an Ebola-affected area in the 21 days before illness onset. ROS: 12:27 All other systems are negative. gs Exam: 12:27 Head/Face: Normocephalic, atraumatic. Eyes: Pupils equal round and reactive to light, gs extra-ocular motions intact. Lids and lashes normal. Conjunctiva and sclera are non-icteric and not injected. Cornea within normal limits. Periorbital areas with no swelling, redness, or edema. ENT: Nares patent. No nasal discharge, no septal abnormalities noted. Tympanic membranes are normal and external auditory canals are clear. Oropharynx with no redness, swelling, or masses, exudates, or evidence of obstruction, uvula midline. Mucous membranes moist. Neck: Trachea midline, no thyromegaly or masses palpated, and no cervical lymphadenopathy. Supple, full range of motion without nuchal rigidity, or vertebral point tenderness. No Meningismus. Cardiovascular: Regular rate and rhythm with a normal S1 and S2. No gallops, murmurs, or rubs. Normal PMI, no JVD. No pulse deficits. Respiratory: Lungs have equal breath sounds bilaterally, clear to auscultation and percussion. No rales, rhonchi or wheezes noted. No increased work of breathing, no retractions or nasal flaring. Abdomen/GI: Soft, non-tender, with normal bowel sounds. No distension or tympany. No guarding or rebound. No evidence of tenderness throughout. Back: No spinal tenderness. No costovertebral tenderness. Full range of motion. Skin: Warm, dry with normal turgor. Normal color with no rashes, no lesions, and no evidence of cellulitis. 12:27 Constitutional: The patient appears alert, awake. 12:27 Chest/axilla: Palpation: tenderness, that is mild, of the right lateral anterior chest. 12:27 Musculoskeletal/extremity: Circulation is intact in all extremities. Sensation intact. Joints: painful range of motion. 12:27 Unable to obtain exam due to baseline dementia. Vital Signs: 10:09 BP 130 / 73; Pulse 82; Resp 18; Temp 98.2(O); Pulse Ox 95% on R/A; Weight 90.72 kg; hj Height 6 ft. 0 in. (182.88 cm); Pain 5/10; 12:51 BP 131 / 75; Pulse 80; Resp 16; Pulse Ox 95% ; jl7 10:09 Body Mass Index 27.12 (90.72 kg, 182.88 cm) hj MDM: 10:40 Patient medically screened. 12:27 Differential diagnosis: abrasion, fracture, strain. Data reviewed: vital signs, nurses gs notes. Response to treatment: the patient's symptoms have mildly improved after treatment, and as a result, I will discharge patient. 08/31 10:44 Order name: Humerus Right XRAY; Complete Time: 12:26 gs 08/31 10:44 Order name: CT Chest Wo Con; Complete Time: 12:26 gs Administered Medications: No medications were administered Disposition: 08/31/17 12:29 Discharged to Home. Impression: Multiple fractures of ribs. - Condition is Stable. - Discharge Instructions: Rib Fracture, Shoulder Sprain. - Medication Reconciliation Form, Thank You Letter, Antibiotic Education, Prescription Opioid Use form. - Follow up: Private Physician; When: 2 - 3 days; Reason: Re-evaluation by your physician. Signatures: Dispatcher [employer] EDKeron De La Torre RN RN hj Mary Odom RN RN jl7 Gabo Matute MD MD gs Corrections: (The following items were deleted from the chart) 12:51 12:29 08/31/2017 12:29 Discharged to Home. Impression: Multiple fractures of ribs. jl7 Condition is Stable. Forms are Medication Reconciliation Form, Thank You Letter, Antibiotic Education, Prescription Opioid Use. Follow up: Private Physician; When: 2 - 3 days; Reason: Re-evaluation by your physician. gs
--- NOTE | 2017-08-31 12:30 | ER ---
Nurse's Notes [facility] Name: Akash Byers Jr Age: 89 yrs Sex: Male : 1925 Arrival Date: 08/31/2017 Time: 09:58 Bed 19 Private MD: Evan Gregg V Diagnosis: Multiple fractures of ribs Presentation: 08/31 10:06 Presenting complaint: Child states: he has fallen several times and the last fall was hj August 25, last night he complained of R shoulder pain and R rib area; denies SOB;. Transition of care: patient was not received from another setting of care. Onset of symptoms was August 30, 2017. Risk Assessment: Do you want to hurt yourself or someone else? Patient reports no desire to harm self or others. Initial Sepsis Screen: Does the patient meet any 2 criteria? No. Patient's initial sepsis screen is negative. Does the patient have a suspected source of infection? No. Patient's initial sepsis screen is negative. Care prior to arrival: None. 10:06 Method Of Arrival: Ambulatory 10:06 Method Of Arrival: Ambulatory 10:06 Acuity: VIN 4 hj Triage Assessment: 10:07 General: Appears in no apparent distress. uncomfortable, Behavior is calm, cooperative, hj appropriate for age. Pain: Complains of pain in rib and shoulder. Historical: - Allergies: 10:09 PENICILLINS; hj - PMHx: 10:09 Alzheimers; Hypertension; hj - PSHx: 10:09 Cholecystectomy; hj - Immunization history:: Adult Immunizations up to date. - Social history:: Smoking status: Patient/guardian denies using tobacco, Patient/guardian denies using alcohol. - Ebola Screening: : Patient negative for fever greater than or equal to 101.5 degrees Fahrenheit, and additional compatible Ebola Virus Disease symptoms Patient denies exposure to infectious person Patient denies travel to an Ebola-affected area in the 21 days before illness onset. Screenin:07 Abuse screen: Denies threats or abuse. Denies injuries from another. Nutritional hj screening: No deficits noted. Tuberculosis screening: No symptoms or risk factors identified. Fall Risk None identified. Assessment: 10:49 General: Appears in no apparent distress. uncomfortable, Behavior is calm, cooperative, jl7 appropriate for age. Pain: Complains of pain in right rib cage Pain does not radiate. Pain currently is 4 out of 10 on a pain scale. Quality of pain is described as "sore" Is continuous. Pain: Complains of pain in right shoulder Pain does not radiate. Pain currently is 2 out of 10 on a pain scale. Quality of pain is described as "sore" Is continuous. Neuro: Level of Consciousness is awake, alert, obeys commands, Oriented to person, place, time, situation. Cardiovascular: Patient's skin is warm and dry. Respiratory: Airway is patent Respiratory effort is even, unlabored, Respiratory pattern is regular, symmetrical. Derm: Skin is pink, warm \\T\\ dry. Bruising that is dark purple, green, yellow, on anterior aspect of right lateral abdomen and left upper quadrant Pt's daughter states "The bruising has been there since last week, the lady that bathes him noticed it and called to let us know." Pt states "I don't remember where it come from but it don't hurt on that side.". 12:06 Reassessment: No changes from previously documented assessment. Patient and/or family jl7 updated on plan of care and expected duration. Pain level reassessed. Patient is alert, oriented x 3, equal unlabored respirations, skin warm/dry/pink. Vital Signs: 10:09 BP 130 / 73; Pulse 82; Resp 18; Temp 98.2(O); Pulse Ox 95% on R/A; Weight 90.72 kg; hj Height 6 ft. 0 in. (182.88 cm); Pain 5/10; 12:51 BP 131 / 75; Pulse 80; Resp 16; Pulse Ox 95% ; jl7 10:09 Body Mass Index 27.12 (90.72 kg, 182.88 cm) ED Course: 09:58 Patient arrived in ED. mr 09:58 Evan Gregg MD is Private Physician. mr 10:07 Triage completed. 10:08 Arm band placed on right wrist. 10:09 Patient has correct armband on for positive identification. Bed in low position. Call light in reach. Side rails up X 1. Adult w/ patient. 10:31 Gabo Matute MD is Attending Physician. gs 10:38 Mary Odom RN is Primary Nurse. jl7 11:05 CT Chest Wo Con In Process Unspecified. EDMS 11:06 CT completed. Patient tolerated procedure well. Patient moved back from CT. 11:19 X-ray completed. Portable x-ray completed in exam room. Patient tolerated procedure ml well. 11:21 Humerus Right XRAY In Process Unspecified. EDMS 12:06 Awaiting radiology results. jl7 12:50 No provider procedures requiring assistance completed. Patient did not have IV access jl7 during this emergency room visit. Administered Medications: No medications were administered Outcome: 12:29 Discharge ordered by . nina 12:50 Discharged to home ambulatory. jl7 12:50 Condition: stable 12:50 Discharge instructions given to patient, family, Instructed on discharge instructions, follow up and referral plans. Demonstrated understanding of instructions, follow-up care. 12:51 Patient left the ED. jl7 Signatures: Dispatcher [employer] EDOR Shivani Lopez Jad, Aliya Vail, Keron rCuz RN RN hj Leal, Jahala, RN RN jl7 Gabo Matute MD MD Corrections: (The following items were deleted from the chart) 10:07 10:05 Presenting complaint: selena walters
[2017-08-31 12:55] VITALS: TEMP 98.2; O2SAT 95
[2017-08-31 12:56] VITALS: BP 131/75
== END 2017-08-31 12:51 | disposition home or self-care (01) ==
LOC: ER 09:55
DX: S22.49XA Multiple fractures of ribs, unspecified side, initial encounter for closed fracture (principal); W18.30XA Fall on same level, unspecified, initial encounter; Y93.9 Activity, unspecified; Y92.9 Unspecified place or not applicable; Z88.0 Allergy status to penicillin; I10 Essential (primary) hypertension; F03.90 Unspecified dementia, unspecified severity, without behavioral disturbance, psychotic disturbance, mood disturbance, and anxiety
CPT/HCPCS: 71250; 99284

== ENCOUNTER 2017-09-16 03:40 | Emergency (ER) | payer OTHER ==
--- NOTE | 2017-09-16 04:38 | EDPHYS ---
Physician Documentation [facility] Name: Akash Byers Jr Age: 89 yrs Sex: Male : 1925 Arrival Date: 09/16/2017 Time: 03:42 Bed 4 Private MD: ED Physician Keegan Ramirez HPI: 09/16 03:56 This 89 yrs old Male presents to ER via EMS with complaints of Fall Injury. pkl 03:56 Details of fall: The patient fell from a supine position, out of bed. Onset: The pkl symptoms/episode began/occurred just prior to arrival. Associated injuries: The patient sustained injury to the head, contusion, hematoma. Historical: - Allergies: 04:02 PENICILLINS; bb - Home Meds: 04:02 Acephen 650 mg Rectal supp 1 suppository every 4 hours [Active]; Cipro 500 mg Oral tab bb 1 tab every 12 hours [Active]; citalopram 20 mg tab 1 tab once daily [Active]; clopidogrel 75 mg Oral tab 1 tab once daily [Active]; donepezil 10 mg Oral tab 1 tab once daily [Active]; diazepam 10 mg Oral tab 1 tab 3 times per day [Active]; lactulose 10 gram/15 mL (15 mL) Oral soln 15 mL once daily [Active]; lorazepam 0.5 mg Oral tab 1 tab 3 times per day [Active]; morphine 15 mg Oral tab 1 tab every 4 hours [Active]; omeprazole 20 mg Oral cpDR 1 cap once daily [Active]; tamsulosin 0.4 mg Oral cp24 1 cap once daily [Active]; triamcinolone acetonide 0.025 % Topical crea 2 times per day [Active]; Zofran (as hydrochloride) 4 mg Oral tab 1 tabs as needed [Active]; Vesicare 5 mg Oral tab 1 tab once daily [Active]; tramadol 50 mg Oral tab 1 tab every 4 hours [Active]; irbesartan 150 mg oral tab 1 tab once daily [Active]; magnesium oxide 400 mg Oral cap twice a day [Active]; atropine 1 % Opht drop [Active]; Transderm-Scop 1.5 mg (1 mg over 3 days) TD pt3d 1 patch [Active]; - PMHx: 04:02 Alzheimers; Hypertension; bb - PSHx: 04:02 Cholecystectomy; bb - Code Status:: EMS reports pt has out of hospital DNR and is on hospice for advanced Alzheimer's disease. - Immunization history: Last tetanus immunization: unknown. - Social history:: Smoking status: Patient/guardian denies using tobacco. - Ebola Screening: : No symptoms or risks identified at this time. ROS: 03:56 Eyes: Negative for injury, pain, redness, and discharge, ENT: Negative for injury, pkl pain, and discharge, Neck: Negative for injury, pain, and swelling, Cardiovascular: Negative for chest pain, palpitations, and edema, Respiratory: Negative for shortness of breath, cough, wheezing, and pleuritic chest pain, Abdomen/GI: Negative for abdominal pain, nausea, vomiting, diarrhea, and constipation, Back: Negative for injury and pain, : Negative for injury, bleeding, discharge, and swelling, MS/Extremity: Negative for injury and deformity, Skin: Negative for injury, rash, and discoloration. 03:56 Neuro: Negative for altered mental status, loss of consciousness. Exam: 03:56 Eyes: Pupils equal round and reactive to light, extra-ocular motions intact. Lids and pkl lashes normal. Conjunctiva and sclera are non-icteric and not injected. Cornea within normal limits. Periorbital areas with no swelling, redness, or edema. 03:56 Head/face: Noted is contusion, hematoma, that is mild, of the occipital scalp. 03:56 ENT: Exam is negative for acute changes. 03:56 Neck: Exam negative for obvious evidence of injury or deformity, pain w/ palpation. 03:56 Chest/axilla: Exam negative for acute changes. 03:56 Cardiovascular: Rate: normal, Rhythm: regular. 03:56 Respiratory: the patient does not display signs of respiratory distress, Respirations: normal, Breath sounds: are clear throughout. 03:56 Abdomen/GI: Bowel sounds: normal, Palpation: abdomen is soft and non-tender, in all quadrants. 03:56 Back: Exam negative for acute changes, injury. 03:56 : Exam negative for acute changes. 03:56 Musculoskeletal/extremity: Exam is negative for acute changes, injury. 03:56 Skin: Exam negative for rash. 03:56 Neuro: Orientation: appropriate for stated age, Mentation: is normal, Cranial nerves: grossly normal, Motor: is normal. Vital Signs: 03:43 BP 185 / 89; Pulse 65; Resp 16 S; Temp 97.5(O); Pulse Ox 97% on R/A; Weight 90.72 kg bb (R); Height 6 ft. 0 in. (182.88 cm) (R); Pain 0/10; 04:40 BP 178 / 60; Pulse 62; Resp 18 S; Temp 97.8; Pulse Ox 99% on R/A; Pain 0/10; aa1 03:43 Body Mass Index 27.12 (90.72 kg, 182.88 cm) bb Shauna Coma Score: 03:43 Eye Response: spontaneous(4). Verbal Response: confused(4). Motor Response: obeys bb commands(6). Total: 14. 04:50 Eye Response: spontaneous(4). Verbal Response: oriented(5). Motor Response: obeys ea commands(6). Total: 15. Trauma Score (Adult): 03:43 Eye Response: spontaneous(1); Verbal Response: confused(1); Motor Response: obeys bb commands(2); Systolic BP: > 89 mm Hg(4); Respiratory Rate: 10 to 29 per min(4); Shauna Score: 14; Trauma Score: 12 04:40 Eye Response: spontaneous(1); Verbal Response: oriented(1); Motor Response: obeys aa1 commands(2); Systolic BP: > 89 mm Hg(4); Respiratory Rate: 10 to 29 per min(4); [place] Score: 15; Trauma Score: 12 MDM: 03:45 Patient medically screened. pkl 04:36 Data reviewed: vital signs, nurses notes, radiologic studies, CT scan. pkl 09/16 03:56 Order name: CT Head Brain wo Cont pkl Administered Medications: No medications were administered Disposition: 09/16/17 04:37 Discharged to Home. Impression: Head injury. S/P Fall. - Condition is Stable. - Medication Reconciliation Form, Thank You Letter, Antibiotic Education, Prescription Opioid Use form. - Follow up: Private Physician; When: 1 - 2 days; Reason: Re-evaluation by your physician. - Problem is new. - Symptoms have improved. Signatures: Dispatcher [employer] EDMS Vannesa Patterson RN RN aa1 Keegan Ramirez MD MD pkl Shikha Rogers RN RN Ailyn Curtis RN RN ea Corrections: (The following items were deleted from the chart) 04:59 04:37 09/16/2017 04:37 Discharged to Home. Impression: Head injury. S/P Fall. Condition ea is Stable. Forms are Medication Reconciliation Form, Thank You Letter, Antibiotic Education, Prescription Opioid Use. Follow up: Private Physician; When: 1 - 2 days; Reason: Re-evaluation by your physician. Problem is new. Symptoms have improved. pkl
--- NOTE | 2017-09-16 04:38 | ER ---
Nurse's Notes [facility] Name: Akash Byers Jr Age: 89 yrs Sex: Male : 1925 Arrival Date: 09/16/2017 Time: 03:42 Bed 4 Private MD: Diagnosis: Head injury. S/P Fall Presentation: 09/16 03:43 Presenting complaint: EMS states: they were toned out for report of pt having fallen bb from bed at [facility]. Care prior to arrival: None. Mechanism of Injury: Fall out of bed. Trauma event details: Injury occurred in the [facility], Injury occurred: [facility] Injury occurred: September 16, 2017. 03:43 Acuity: VIN 2 bb 03:43 Method Of Arrival: EMS: [facility] bb 03:47 Transition of care: patient was received from another setting of care (long-term care facility), [facility]. Onset of symptoms was September 16, 2017. Risk Assessment: Do you want to hurt yourself or someone else? Patient reports no desire to harm self or others. Initial Sepsis Screen: Does the patient meet any 2 criteria? No. Patient's initial sepsis screen is negative. Does the patient have a suspected source of infection? No. Patient's initial sepsis screen is negative. Trauma Activation: Alert Physician: ED Physician; Name: NÉSTOR; Notified At: 03:34; Arrived At: 03:34 Physician: General Surgeon; Name: ; Notified At: 03:34; Arrived At: Physician: Radiology; Name: ANDREIA; Notified At: 03:34; Arrived At: 03:35 Physician: Respiratory; Name: KAITLIN; Notified At: 03:34; Arrived At: 03:35 Physician: Lab; Name: ; Notified At: 03:34; Arrived At: Historical: - Allergies: 04:02 PENICILLINS; bb - Home Meds: 04:02 Acephen 650 mg Rectal supp 1 suppository every 4 hours [Active]; Cipro 500 mg Oral tab bb 1 tab every 12 hours [Active]; citalopram 20 mg tab 1 tab once daily [Active]; clopidogrel 75 mg Oral tab 1 tab once daily [Active]; donepezil 10 mg Oral tab 1 tab once daily [Active]; diazepam 10 mg Oral tab 1 tab 3 times per day [Active]; lactulose 10 gram/15 mL (15 mL) Oral soln 15 mL once daily [Active]; lorazepam 0.5 mg Oral tab 1 tab 3 times per day [Active]; morphine 15 mg Oral tab 1 tab every 4 hours [Active]; omeprazole 20 mg Oral cpDR 1 cap once daily [Active]; tamsulosin 0.4 mg Oral cp24 1 cap once daily [Active]; triamcinolone acetonide 0.025 % Topical crea 2 times per day [Active]; Zofran (as hydrochloride) 4 mg Oral tab 1 tabs as needed [Active]; Vesicare 5 mg Oral tab 1 tab once daily [Active]; tramadol 50 mg Oral tab 1 tab every 4 hours [Active]; irbesartan 150 mg oral tab 1 tab once daily [Active]; magnesium oxide 400 mg Oral cap twice a day [Active]; atropine 1 % Opht drop [Active]; Transderm-Scop 1.5 mg (1 mg over 3 days) TD pt3d 1 patch [Active]; - PMHx: 04:02 Alzheimers; Hypertension; bb - PSHx: 04:02 Cholecystectomy; bb - Code Status:: EMS reports pt has out of hospital DNR and is on hospice for advanced Alzheimer's disease. - Immunization history: Last tetanus immunization: unknown. - Social history:: Smoking status: Patient/guardian denies using tobacco. - Ebola Screening: : No symptoms or risks identified at this time. Screenin:43 Abuse screen: Denies threats or abuse. Tuberculosis screening: No symptoms or risk bb factors identified. 03:43 Nutritional screening: No deficits noted. Fall Risk Fall in past 12 months (25 points). aa1 Primary Survey: 03:55 A: Airway: patent, No supplemental oxygen in use on arrival. Breathing/Chest: aa1 Respiratory pattern: regular, Respiratory effort: spontaneous, unlabored, Breath sounds: clear, bilaterally. Chest inspection: symmetrical rise and fall of the chest. Circulation: Heart tones present. Pulses: palpable right radial artery and left radial artery. Skin color: pink, Skin temperature: warm. Disability Alert. 04:50 Reassessment Airway Airway Patent Breathing/Chest Respiratory pattern Regular ea Respiratory effort Spontaneous Unlabored Circulation Temperature Warm Disability Alert. Secondary Survey: 03:55 HEENT: Head Other hematoma noted. Gastrointestinal: No deficits noted. : No signs aa1 and/or symptoms were reported regarding the genitourinary system. Musculoskeletal: No signs and/or symptoms reported regarding the musculoskeletal system. Assessment: 03:43 General: Appears in no apparent distress. comfortable, Behavior is calm, cooperative, aa1 appropriate for age. Pain: Complains of pain in scalp and neck. Neuro: Level of Consciousness is awake, alert, obeys commands, Oriented to person, place, situation, pt has Alzheimer's. Moves all extremities. Speech is normal, Pupils are PERRLA. Cardiovascular: Denies chest pain, shortness of breath, Heart tones S1 S2 present. Respiratory: Airway is patent Respiratory effort is even, unlabored, Respiratory pattern is regular, symmetrical. GI: Abdomen is non-distended, Abd is soft and non tender X 4 quads. : No signs and/or symptoms were reported regarding the genitourinary system. EENT: No signs and/or symptoms were reported regarding the EENT system. Derm: Skin is intact, is healthy with good turgor, Skin is pink, warm \T\ dry. Musculoskeletal: Circulation, motion, and sensation intact. Capillary refill < 3 seconds, Range of motion: intact in all extremities. Injury Description: Head injury sustained to scalp is closed, did not have loss of consciousness. 04:05 Reassessment: Pt taken to CT at this time. aa1 04:40 Reassessment: Patient appears in no apparent distress at this time. Patient is alert, aa1 oriented x 3, equal unlabored respirations, skin warm/dry/pink. Discussed d/c \T\ f/u instructions with pt \T\ neighbor; denies questions or concerns at this time. 04:54 Reassessment: Patient and/or family updated on plan of care and expected duration. Pain ea level reassessed. Patient is alert, oriented x 3, equal unlabored respirations, skin warm/dry/pink. Discharge instructions given to patient, verbalized the understanding of instruction. Friend at bedside reports he will take him back to [facility]. Vital Signs: 03:43 BP 185 / 89; Pulse 65; Resp 16 S; Temp 97.5(O); Pulse Ox 97% on R/A; Weight 90.72 kg bb (R); Height 6 ft. 0 in. (182.88 cm) (R); Pain 0/10; 04:40 BP 178 / 60; Pulse 62; Resp 18 S; Temp 97.8; Pulse Ox 99% on R/A; Pain 0/10; aa1 03:43 Body Mass Index 27.12 (90.72 kg, 182.88 cm) bb Shauna Coma Score: 03:43 Eye Response: spontaneous(4). Verbal Response: confused(4). Motor Response: obeys bb commands(6). Total: 14. 04:50 Eye Response: spontaneous(4). Verbal Response: oriented(5). Motor Response: obeys ea commands(6). Total: 15. Trauma Score (Adult): 03:43 Eye Response: spontaneous(1); Verbal Response: confused(1); Motor Response: obeys bb commands(2); Systolic BP: > 89 mm Hg(4); Respiratory Rate: 10 to 29 per min(4); Palouse Score: 14; Trauma Score: 12 04:40 Eye Response: spontaneous(1); Verbal Response: oriented(1); Motor Response: obeys aa1 commands(2); Systolic BP: > 89 mm Hg(4); Respiratory Rate: 10 to 29 per min(4); Shauna Score: 15; Trauma Score: 12 ED Course: 03:42 Patient arrived in ED. bb 03:43 Vannesa Patterson, RN is Primary Nurse. aa1 03:43 Patient has correct armband on for positive identification. Bed in low position. Call bb light in reach. Side rails up X2. 03:43 Patient maintains SpO2 saturation greater than 95% on room air. bb 03:45 Keegan Ramirez MD is Attending Physician. pkl 03:45 Triage completed. bb 03:45 Patient placed on a stretcher, on pulse oximetry. bb 03:45 Inserted saline lock: 20 gauge in right antecubital area, using aseptic technique. cc Blood collected. 03:50 Thermoregulation: warm blanket given to patient. ea 04:[address] via stretcher. kw1 04:28 CT Head Brain wo Cont In Process Unspecified. EDMS 04:28 CT completed. Patient tolerated procedure well. Patient moved back from CT. kw1 04:53 No provider procedures requiring assistance completed. IV discontinued, intact, ea bleeding controlled, No redness/swelling at site. Pressure dressing applied. Administered Medications: No medications were administered Intake: 03:43 PO: 0ml; Total: 0ml. aden Outcome: 04:37 Discharge ordered by . mason 04:56 Discharged to home via wheelchair, with friend. ea 04:56 Condition: good 04:56 Patient's length of stay was not longer than 2 hours. 04:57 Discharge instructions given to patient, Instructed on discharge instructions, follow ea up and referral plans. Demonstrated understanding of instructions, follow-up care. 04:59 Patient left the ED. ea Signatures: Dispatcher [employer] EDMS Vannesa Patterson RN RN aa1 Keegan Ramirez MD MD pkl Ballard, Brenda RN RN Pattie Crowe Elena, RN RN ea Wilhelm, Kimberly kw1 Corrections: (The following items were deleted from the chart) 05:11 04:50 BP 178 / 60; Pulse 62bpm; Resp 18bpm; Spontaneous; Pulse Ox 99% RA; Temp 97.8F; aa1 Pain 0/10; ea
[2017-09-16 05:04] VITALS: BP 178/60; TEMP 97.8; O2SAT 99
--- NOTE | 2017-09-16 06:54 | RAD REPORT ---
EXAM DESCRIPTION: CT - Head Brain Wo Cont - 09/16/2017 5:06 am CLINICAL HISTORY: Fall, head injury. A preliminary written report was provided at the time of the study, and the report was reviewed prio r to final dictation. COMPARISON: CT head June 28 TECHNIQUE: Axial 5 mm thick images of the head were obtained without IV contrast. All CT scans are performed using dose optimization technique as appropriate and may include automated exposure control or mA/KV adjustment according to patient size. FINDINGS: No intracranial hemorrhage, mass, edema or shift of mid-line structures. No acute cortical based infarction seen. Patient's moderate atrophy and advanced chronic ischemic changes are stable. Ventricular size remains in proportion to volume loss. No abnormal extra-axial fluid collections. Art erial and physiologic calcifications are present. Mastoid air cells and visualized portions of the paranasal sinuses are clear. No acute bony findings. IMPRESSION: No hemorrhage, edema or acute intracranial finding. Moderate atrophy and advanced chronic ischemic changes are similar to May.
== END 2017-09-16 04:59 | disposition home or self-care (01) ==
LOC: ER 03:40
DX: S09.90XA Unspecified injury of head, initial encounter (principal); G30.9 Alzheimer's disease, unspecified; F02.80 Dementia in other diseases classified elsewhere, unspecified severity, without behavioral disturbance, psychotic disturbance, mood disturbance, and anxiety; I10 Essential (primary) hypertension; W06.XXXA Fall from bed, initial encounter; Y93.9 Activity, unspecified; Y92.9 Unspecified place or not applicable; Y99.9 Unspecified external cause status; Z88.0 Allergy status to penicillin
CPT/HCPCS: 70450; 99285

== ENCOUNTER 2017-10-06 22:45 | Emergency (ER) | payer OTHER ==
--- NOTE | 2017-10-07 00:58 | EDPHYS ---
Physician Documentation [facility] Name: Akash Byers Jr Age: 89 yrs Sex: Male : 1925 Arrival Date: 10/06/2017 Time: 22:50 Bed 8 Private MD: ED Physician Tristin Salinas HPI: 10/07 00:24 This 89 yrs old Male presents to ER via EMS with complaints of Fall Injury. ajith 00:24 Details of fall: The patient fell from a height, off furniture, approximately 3 feet. ajith Onset: The symptoms/episode began/occurred just prior to arrival. Associated injuries: The patient sustained injury to the head. Severity of symptoms: At their worst the symptoms were very mild, in the emergency department the symptoms are unchanged. The patient has not experienced similar symptoms in the past. Historical: - Allergies: 10/06 23:04 PENICILLINS; aa1 23:04 Tape; aa1 - Home Meds: 23:04 citalopram 20 mg tab 1 tab once daily [Active]; clopidogrel 75 mg Oral tab 1 tab once aa1 daily [Active]; donepezil 10 mg Oral tab 1 tab once daily [Active]; Levaquin 500 mg Oral tab 1 tab once daily [Active]; magnesium oxide 400 mg Oral cap twice a day [Active]; omeprazole 20 mg Oral cpDR 1 cap once daily [Active]; tamsulosin 0.4 mg Oral cp24 1 cap once daily [Active]; tramadol 50 mg Oral tab 1 tab three times a day [Active]; Vesicare 5 mg Oral tab 1 tab once daily [Active]; Acephen 650 mg Rectal supp 1 suppository every 4 hours [Active]; atropine 1 % Opht drop 10 drops subligually q2h PRN for secretions [Active]; Cipro 500 mg Oral tab 1 tab every 12 hours [Active]; diazepam 10 mg Oral tab 1 tab every 6 hours [Active]; lactulose 10 gram/15 mL (15 mL) Oral soln 30 mL once daily for Constipation [Active]; lorazepam 0.5 mg Oral tab 1 tab q2h PRN for Anxiety [Active]; morphine 15 mg Oral tab 1 tab every 4 hours [Active]; Zofran (as hydrochloride) 4 mg Oral tab 1 tabs as needed [Active]; Transderm-Scop 1.5 mg (1 mg over 3 days) TD pt3d 1 patch [Active]; triamcinolone acetonide 0.025 % Topical crea 2 times per day [Active]; - PMHx: 23:04 Alzheimers; Hypertension; Anxiety; constipation; aa1 - PSHx: 23:04 Cholecystectomy; aa1 - Immunization history:: Last tetanus immunization: up to date. - Social history:: Smoking status: Patient/guardian denies using tobacco. - Ebola Screening: : No symptoms or risks identified at this time. - Family history:: not pertinent. ROS: 10/07 00:24 Constitutional: Negative for fever, chills, and weight loss, Eyes: Negative for injury, ajith pain, redness, and discharge, ENT: Negative for injury, pain, and discharge, Neck: Negative for injury, pain, and swelling, Cardiovascular: Negative for chest pain, palpitations, and edema, Respiratory: Negative for shortness of breath, cough, wheezing, and pleuritic chest pain, Abdomen/GI: Negative for abdominal pain, nausea, vomiting, diarrhea, and constipation, Back: Negative for injury and pain, : Negative for injury, bleeding, discharge, and swelling, MS/Extremity: Negative for injury and deformity, Skin: Negative for injury, rash, and discoloration, Psych: Negative for depression, anxiety, suicide ideation, homicidal ideation, and hallucinations, Allergy/Immunology: Negative for hives, rash, and allergies, Endocrine: Negative for neck swelling, polydipsia, polyuria, polyphagia, and marked weight changes, Hematologic/Lymphatic: Negative for swollen nodes, abnormal bleeding, and unusual bruising. Neuro: Positive for headache, of the right parietal area. Exam: 00:24 Constitutional: This is a well developed, well nourished patient who is awake, alert, ajith and in no acute distress. Head/Face: Normocephalic, atraumatic. Eyes: Pupils equal round and reactive to light, extra-ocular motions intact. Lids and lashes normal. Conjunctiva and sclera are non-icteric and not injected. Cornea within normal limits. Periorbital areas with no swelling, redness, or edema. ENT: Nares patent. No nasal discharge, no septal abnormalities noted. Tympanic membranes are normal and external auditory canals are clear. Oropharynx with no redness, swelling, or masses, exudates, or evidence of obstruction, uvula midline. Mucous membranes moist. Neck: Trachea midline, no thyromegaly or masses palpated, and no cervical lymphadenopathy. Supple, full range of motion without nuchal rigidity, or vertebral point tenderness. No Meningismus. Chest/axilla: Normal chest wall appearance and motion. Nontender with no deformity. No lesions are appreciated. Cardiovascular: Regular rate and rhythm with a normal S1 and S2. No gallops, murmurs, or rubs. Normal PMI, no JVD. No pulse deficits. Respiratory: Lungs have equal breath sounds bilaterally, clear to auscultation and percussion. No rales, rhonchi or wheezes noted. No increased work of breathing, no retractions or nasal flaring. Abdomen/GI: Soft, non-tender, with normal bowel sounds. No distension or tympany. No guarding or rebound. No evidence of tenderness throughout. Back: No spinal tenderness. No costovertebral tenderness. Full range of motion. Male : Normal genitalia with no discharge or lesions. Skin: Warm, dry with normal turgor. Normal color with no rashes, no lesions, and no evidence of cellulitis. MS/ Extremity: Pulses equal, no cyanosis. Neurovascular intact. Full, normal range of motion. Neuro: Awake and alert, GCS 15, oriented to person, place, time, and situation. Cranial nerves II-XII grossly intact. Motor strength 5/5 in all extremities. Sensory grossly intact. Cerebellar exam normal. Normal gait. Psych: Awake, alert, with orientation to person, place and time. Behavior, mood, and affect are within normal limits. Vital Signs: 10/06 22:51 BP 155 / 66; Pulse 62; Resp 18; Temp 98.9; Pulse Ox 97% on R/A; Weight 93.89 kg; Height aa1 6 ft. 0 in. (182.88 cm); Pain 0/10; 23:56 BP 154 / 59; Pulse 64; Resp 18; Pulse Ox 97% on R/A; Pain 0/10; aa1 22:51 Body Mass Index 28.07 (93.89 kg, 182.88 cm) aa1 MDM: 22:53 Patient medically screened. [facility] 10/06 23:27 Order name: CT Head C Spine aa1 Administered Medications: No medications were administered Disposition: 10/07/17 00:58 Discharged to Home. Impression: Fall due to bumping against object, Superficial injury of head, Alzheimer's disease. - Condition is Stable. - Discharge Instructions: Dementia, Head Injury, Adult, Fall Prevention in the Home, Fall Prevention in the Home, [id number], Fall Prevention in Hospitals, Adult, Dementia, [id number]. - Medication Reconciliation Form, Thank You Letter, Antibiotic Education, Prescription Opioid Use form. - Follow up: Private Physician; When: 48 Hours; Reason: Recheck today's complaints, Continuance of care, Re-evaluation by your physician. - Problem is new. - Symptoms have improved. Signatures: Dispatcher [employer] EDMS Vannesa Patterson RN RN aa1 Tristin Salinas MD MD cha Corrections: (The following items were deleted from the chart) 10/07 01:28 00:58 10/07/2017 00:58 Discharged to Home. Impression: Fall due to bumping against aa1 object; Superficial injury of head; Alzheimer's disease. Condition is Stable. Discharge Instructions: Head Injury, Adult, Fall Prevention in the Home, Fall Prevention in the Home, [id number], Fall Prevention in Hospitals, Adult, Dementia, Dementia, [id number]. Forms are Medication Reconciliation Form, Thank You Letter, Antibiotic Education, Prescription Opioid Use. Follow up: Private Physician; When: 48 Hours; Reason: Recheck today's complaints, Continuance of care, Re-evaluation by your physician. Problem is new. Symptoms have improved. ajith
--- NOTE | 2017-10-07 00:58 | ER ---
Nurse's Notes [facility] Name: Akash Byers Jr Age: 89 yrs Sex: Male : 1925 Arrival Date: 10/06/2017 Time: 22:50 Bed 8 Private MD: Diagnosis: Fall due to bumping against object;Superficial injury of head;Alzheimer's disease Presentation: 10/06 22:51 Presenting complaint: Patient states: he was transferring from his wheelchair to his aa1 bed when he lost his balance and fell. Reports hitting his head on the carpet but denies LOC. Small hematoma noted to back of head. Pt A\T\O to person \T\ place which is pt's baseline. Denies neck pain or any other injuries. Transition of care: patient was not received from another setting of care. Onset of symptoms was October 06, 2017. Risk Assessment: Do you want to hurt yourself or someone else? Patient reports no desire to harm self or others. Initial Sepsis Screen: Does the patient meet any 2 criteria? No. Patient's initial sepsis screen is negative. Does the patient have a suspected source of infection? No. Patient's initial sepsis screen is negative. Care prior to arrival: Glucose check: 160. Mechanism of Injury: Fall from standing position. 22:51 Method Of Arrival: EMS: [facility] aa1 22:51 Acuity: VIN 3 aa1 Historical: - Allergies: 23:04 PENICILLINS; aa1 23:04 Tape; aa1 - Home Meds: 23:04 citalopram 20 mg tab 1 tab once daily [Active]; clopidogrel 75 mg Oral tab 1 tab once aa1 daily [Active]; donepezil 10 mg Oral tab 1 tab once daily [Active]; Levaquin 500 mg Oral tab 1 tab once daily [Active]; magnesium oxide 400 mg Oral cap twice a day [Active]; omeprazole 20 mg Oral cpDR 1 cap once daily [Active]; tamsulosin 0.4 mg Oral cp24 1 cap once daily [Active]; tramadol 50 mg Oral tab 1 tab three times a day [Active]; Vesicare 5 mg Oral tab 1 tab once daily [Active]; Acephen 650 mg Rectal supp 1 suppository every 4 hours [Active]; atropine 1 % Opht drop 10 drops subligually q2h PRN for secretions [Active]; Cipro 500 mg Oral tab 1 tab every 12 hours [Active]; diazepam 10 mg Oral tab 1 tab every 6 hours [Active]; lactulose 10 gram/15 mL (15 mL) Oral soln 30 mL once daily for Constipation [Active]; lorazepam 0.5 mg Oral tab 1 tab q2h PRN for Anxiety [Active]; morphine 15 mg Oral tab 1 tab every 4 hours [Active]; Zofran (as hydrochloride) 4 mg Oral tab 1 tabs as needed [Active]; Transderm-Scop 1.5 mg (1 mg over 3 days) TD pt3d 1 patch [Active]; triamcinolone acetonide 0.025 % Topical crea 2 times per day [Active]; - PMHx: 23:04 Alzheimers; Hypertension; Anxiety; constipation; aa1 - PSHx: 23:04 Cholecystectomy; aa1 - Immunization history:: Last tetanus immunization: up to date. - Social history:: Smoking status: Patient/guardian denies using tobacco. - Ebola Screening: : No symptoms or risks identified at this time. - Family history:: not pertinent. Screenin:55 Abuse screen: Denies threats or abuse. Denies injuries from another. Nutritional aa1 screening: No deficits noted. Tuberculosis screening: No symptoms or risk factors identified. Fall Risk Fall in past 12 months (25 points). Assessment: 22:55 General: Appears in no apparent distress. comfortable, Behavior is calm, cooperative, aa1 appropriate for age. Pain: Denies pain. Neuro: Level of Consciousness is awake, alert, obeys commands, Oriented to person, place, Moves all extremities. Speech is normal, Pupils are PERRLA, Denies blurred vision dizziness, headache diplopia. Cardiovascular: Denies chest pain, diaphoresis, palpitations, shortness of breath. Respiratory: Airway is patent Respiratory effort is even, unlabored, Respiratory pattern is regular, symmetrical. GI: No signs and/or symptoms were reported involving the gastrointestinal system. : No signs and/or symptoms were reported regarding the genitourinary system. EENT: No signs and/or symptoms were reported regarding the EENT system. Derm: Skin is intact, is healthy with good turgor, Skin is pink, warm \T\ dry. Musculoskeletal: Circulation, motion, and sensation intact. Capillary refill < 3 seconds, Range of motion: intact in all extremities. 23:55 Reassessment: Patient appears in no apparent distress at this time. No changes from aa1 previously documented assessment. Patient and/or family updated on plan of care and expected duration. Pain level reassessed. Pt awaiting initial assessment from provider. 10/07 01:00 Reassessment: Patient appears in no apparent distress at this time. No changes from aa1 previously documented assessment. Patient and/or family updated on plan of care and expected duration. Pain level reassessed. Pt for d/c. [facility] employee states they are unable to provide transportation at this time. EMS notified and states they can provide wheelchair van transportation. 01:25 Reassessment: Patient appears in no apparent distress at this time. EMS present for aa transportation. Vital Signs: 10/06 22:51 BP 155 / 66; Pulse 62; Resp 18; Temp 98.9; Pulse Ox 97% on R/A; Weight 93.89 kg; Height aa1 6 ft. 0 in. (182.88 cm); Pain 0/10; 23:56 BP 154 / 59; Pulse 64; Resp 18; Pulse Ox 97% on R/A; Pain 0/10; aa1 22:51 Body Mass Index 28.07 (93.89 kg, 182.88 cm) aa1 ED Course: 22:50 Patient arrived in ED. aa1 22:51 Arm band placed on right wrist. Patient placed in an exam room, on a stretcher. aa1 22:53 Tristin Salinas MD is Attending Physician. [facility] 22:54 Triage completed. aa1 22:55 Patient has correct armband on for positive identification. Bed in low position. Call aa1 light in reach. Side rails up X2. Pulse ox on. NIBP on. Warm blanket given. 23:26 Vannesa Patterson, RN is Primary Nurse. aa1 10/07 00:23 CT Head C Spine In Process Unspecified. EDMS 00:56 CT completed. Patient tolerated procedure well. Patient moved to CT via stretcher. Patient moved back from CT. Administered Medications: No medications were administered Outcome: 00:58 Discharge ordered by . [facility] 01:28 Patient left the ED. aa1 Signatures: Dispatcher [employer] EDOK Vannesa Patterson, RN RN aa1 Tristin Salinas MD MD cha Hagler, Ervin eh
[2017-10-07 01:35] VITALS: TEMP 98.9; O2SAT 97
[2017-10-07 01:37] VITALS: BP 154/59
--- NOTE | 2017-10-07 08:18 | RAD REPORT ---
EXAM DESCRIPTION: CT - [id number] - 10/07/2017 4:40 am CLINICAL HISTORY: Fall, head and neck injury A preliminary written report was provided at the time of the study, and the report was reviewed prio r to final dictation. COMPARISON: CT head and cervical May 2017 TECHNIQUE: Axial 5 mm thick images of the head were obtained. Axial 2 mm thick images of the cervic al spine were obtained with sagittal and coronal reconstruction images generated and reviewed. All CT scans are performed using dose optimization technique as appropriate and may include automated exposure control or mA/KV adjustment according to patient size. FINDINGS: No intracranial hemorrhage, mass, edema or acute intracranial finding. No suspicion for acute infarct ion. Patient has moderate to moderately advanced atrophy. Ventricular size is in proportion. Patient has advanced chronic ischemic change. Mastoid air cells and paranasal sinuses are clear. No globe or orbit abnormality seen. Cervical body height and alignment are normal. C6-7 disc space narrowing present with endplate spurri ng. Minimal foraminal encroachment. Multilevel significant facet joint degenerative change present. T here is right foraminal encroachment at C2-3 with bilateral foraminal encroachment at C3-4. There is mild left foraminal encroachment at C4-5. No fracture or acute bony abnormality. Central canal detail is inherently limited. There are advanced degenerative changes involving the dens and anterior arch C1. Degenerative cystic change in the anterior base of the dens is present. No paraspinal mass or hematoma. Dense vascular calcifications are present. IMPRESSION: Advanced atrophy and chronic ischemic change present. No acute intracranial finding. No significant change since May. Advanced cervical spine degenerative change at the dens C1 level and at C6-7. No acute cervical findi ng or significant change since May.
== END 2017-10-07 01:28 | disposition home or self-care (01) ==
LOC: ER 22:45
DX: S00.90XA Unspecified superficial injury of unspecified part of head, initial encounter (principal); G30.9 Alzheimer's disease, unspecified; F02.80 Dementia in other diseases classified elsewhere, unspecified severity, without behavioral disturbance, psychotic disturbance, mood disturbance, and anxiety; W08.XXXA Fall from other furniture, initial encounter; Y93.9 Activity, unspecified; Y92.9 Unspecified place or not applicable; Z88.0 Allergy status to penicillin; Z91.048 Other nonmedicinal substance allergy status; I10 Essential (primary) hypertension; F41.9 Anxiety disorder, unspecified
CPT/HCPCS: 70450; 72125; 99284